=== PATIENT | male | born 1955 | race Caucasian/White ===

== ENCOUNTER 2016-10-04 15:14 | Inpatient (IN) | payer OTHER ==
[~2016-10-04] VITALS: Ht 167.6 cm; Wt 73.6 kg
[~2016-10-04 15:14] MED LIST: DILT30 PO; FURO20 PO; LACT20SO4 PO; LORA0.5T PO; LORTA5 PO; PANT40IN3 PO; RIFA550 PO; SPIR100 PO; THIA100T PO; URSO300 PO
[2016-10-04] MEDS ORDERED: SODIUM CHLORIDE 0.9% FLUSH 5 ML FLUSH IVF PRN (16:15)
[2016-10-04 16:26] VITALS: BP 159/85; PULSE 115; RESP 16; TEMP 98.3; O2SAT 99
--- NOTE | 2016-10-04 16:38 | RADRPT ---
EXAM DATE/TIME: 10/04/2016 16:29 [facility] COMPARISON: CHEST SINGLE AP, May 09, 2016, 5:43. INDICATIONS : Evaluate for pneumonia, pneumothorax, or communicable disease. Pre op hip surgery. MEDICAL HISTORY : None. SURGICAL HISTORY : None. ENCOUNTER: Initial ACUITY: 1 day PAIN SCORE: 0/10 LOCATION: Bilateral chest FINDINGS: A single view of the chest demonstrates the lungs to be symmetrically aerated without evidence of mas s, infiltrate or effusion. The cardiomediastinal contours are unremarkable. Degenerative changes ar e present about the right shoulder.CONCLUSION: No acute disease. Basilio Matute MD FACR on October 04, 2016 at 16:36 Board Certified Radiologist. This report was verified electronically.
--- NOTE | 2016-10-04 16:42 | PD ---
HPI Chief Complaint: Fall Time Seen by Provider: 16:33 Travel History International Travel<30 days: No Contact w/Intl Traveler<30days: No Traveled to known affect area: No History of Present Illness HPI 61-year-old male presents to the emergency department via EMS. He is a hospice patient and slipped and fell last night while in the facility and is complaining of right hip pain. He had a mobile x-ray done that verified a right hip fracture and was then transported to the emergency department. He denies hitting his head or loss of consciousness. Denies neck pain or back pain. Denies paresthesias, loss of sensation to the affected extremity. Reports decreased range of motion and decreased strength. Has been given morphine and Ativan for pain prior to transport via EMS. 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 He denies chest pain, shortness of breath, abdominal pain. Reports vomiting once this morning. Denies fever, chills. Reports taking anticoagulants but does not know the name. No known allergies. No other modifying factors or associated signs and symptoms. PFSH Past Medical History Arthritis: Yes Depression: Yes Cancer: No Cardiovascular Problems: Yes Endocrine: No Genitourinary: No Hypertension: Yes Immune Disorder: No Musculoskeletal: Yes Neurologic: Yes Psychiatric: No Reproductive: No Respiratory: Yes Seizures: Yes (ETOH) Past Surgical History Other Surgery: Yes Social History Alcohol Use: Yes (DAILY 3 BEERS- "75 TO 100 OUNCES" ) Tobacco Use: Yes (3 CIGS A DAY) Substance Use: No Allergies-Medications (Allergen,Severity, Reaction): Coded Allergies: No Known Allergies (Unverified , 10/04/16) Reported Meds & Prescriptions Reported Meds & Active Scripts Active Reported Morphine Liq (Morphine Sulfate) 20 Mg/Ml Liq 5-10 Mg PO Q2HR PRN Ursodiol 300 Mg Cap 300 Mg PO BID Thiamine (Thiamine HCl) 100 Mg Tab 100 Mg PO DAILY Spironolactone 50 Mg Tab 50 Mg PO BID Pantoprazole (Pantoprazole Sodium) 40 Mg Tab 40 Mg PO BID Neomycin (Neomycin Sulfate) 500 Mg Tab 1,000 Mg PO BID Thera-M (Multiple Vitamins W/ Minerals) 1 Tab 1 Tab PO DAILY Milk of Magnesia Liq (Magnesium Hydroxide) 400 Mg/5 Ml Susp 30 Ml PO DAILY PRN Melatonin 3 Mg Tab 6 Mg PO HS Ativan (Lorazepam) 1 Mg Tab 1.5 Mg PO Q4HR PRN Lasix (Furosemide) 20 Mg Tab 20 Mg PO BID Constulose Liq (Lactulose) 10 Gm/15 Ml Soln 30 Gm PO DAILY Lortab (Hydrocodone-Acetaminophen) 5-325 Mg Tab 1 Tab PO Q4H PRN Fleet Enema Rectal (Sodium Phosphates Rectal) 7-19 Gm/118 Ml Enem 118 Ml RECTAL DAILY PRN Cardizem (Diltiazem HCl) 30 Mg Tab 30 Mg PO TID Chlordiazepoxide (Chlordiazepoxide HCl) 25 Mg Cap 25 Mg PO Q4HR PRN Acamprosate DR 333 Mg Tab 333 Mg PO BID Dulcolax Supp (Bisacodyl) 10 Mg Supp 10 Mg RECTAL DAILY PRN Review of Systems Except as stated in HPI: all other systems reviewed are Neg Physical Exam Narrative GENERAL: Well-nourished, well-developed male patient, in no acute distress SKIN: Warm and dry. HEAD: Atraumatic. Normocephalic. EYES: Pupils equal and round. No scleral icterus. No injection or drainage. ENT: Mucosa pink and moist. Airway patent. NECK: Trachea midline. CARDIOVASCULAR: Regular rate and rhythm. No murmur appreciated. RESPIRATORY: No accessory muscle use. Lungs sounds clear and equal bilaterally. GASTROINTESTINAL: Abdomen firm, non-tender, nondistended. Positive bowel sounds. No palpable masses. No guarding. MUSCULOSKELETAL: Right hip with tenderness on palpation; without erythema, ecchymosis; unable to assess range of motion; leg is externally rotated and shortened; with obvious deformity noted. Right lower extremity is supple and non-tense with 2+ pedal pulses and sensory intact and without erythema or edema. NEUROLOGICAL: Awake and alert. Oriented 3. No obvious cranial nerve deficits. Motor grossly within normal limits. Normal speech. PSYCHIATRIC: Appropriate mood and affect; insight and judgment normal. Data Data Last Documented VS Vital Signs Date Time Temp Pulse Resp B/P Pulse Ox O2 Delivery O2 Flow Rate FiO2 10/04/16 17:41 95 Room Air 10/04/16 17:34 121 24 140/88 10/04/16 16:26 98.3 Orders Complete Blood Count With Diff (10/04/16 16:04) Comprehensive Metabolic Panel (10/04/16 16:04) Prothrombin Time / Inr (Pt) (10/04/16 16:04) Act Partial Throm Time (Ptt) (10/04/16 16:04) Iv Access Insert/Monitor (10/04/16 16:04) Ecg Monitoring (10/04/16 16:04) Oximetry (10/04/16 16:04) NPO (10/04/16 16:04) Sodium Chloride 0.9% Flush (Ns Flush) (10/04/16 16:15) Electrocardiogram (10/04/16 16:04) Ct Brain W/O Iv Contrast(Rout) (10/04/16 ) Hip, Uni(Ap&Lat) W Ap Pelvis (10/04/16 16:04) Chest, Single Ap (10/04/16 16:10) Ondansetron Inj (Zofran Inj) (10/04/16 18:00) Morphine Inj (Morphine Inj) (10/04/16 18:45) Type And Screen (10/04/16 20:06) Sodium Chlor 0.9% 1000 Ml Inj (Ns 1000 M (10/04/16 20:15) Consult Orthopedic (10/04/16 ) Admit To Inpatient (10/04/16 ) Vital Signs (Adult) Q4H (10/04/16 20:54) Activity Bed Rest (10/04/16 20:54) Diet Npo (10/05/16 Breakfast) Sodium Chloride 0.9% Flush (Ns Flush) (10/04/16 21:00) Sodium Chloride 0.9% Flush (Ns Flush) (10/04/16 21:00) Ondansetron Inj (Zofran Inj) (10/04/16 21:00) Basic Metabolic Panel (Bmp) (10/05/16 06:00) Complete Blood Count With Diff (10/05/16 06:00) Prothrombin Time / Inr (Pt) (10/05/16 06:00) Case Management Consult (10/04/16 20:54) Scd Bilateral/Knee High GABINO.BID (10/04/16 20:54) Naloxone Inj (Narcan Inj) (10/04/16 21:00) Inpatient Certification (10/04/16 ) Tax Assistant / Telemetry GABINO.Q8H (10/04/16 20:56) Labs Laboratory Tests Test 10/04/16 16:20 White Blood Count 7.7 TH/MM3 Red Blood Count 3.19 MIL/MM3 Hemoglobin 10.0 GM/DL Hematocrit 29.5 % Mean Corpuscular Volume 92.6 FL Mean Corpuscular Hemoglobin 31.4 PG Mean Corpuscular Hemoglobin 33.9 % Concent Red Cell Distribution Width 15.3 % Platelet Count 47 TH/MM3 Mean Platelet Volume 8.3 FL Neutrophils (%) (Auto) 75.0 % Lymphocytes (%) (Auto) 9.7 % Monocytes (%) (Auto) 14.9 % Eosinophils (%) (Auto) 0.3 % Basophils (%) (Auto) 0.1 % Neutrophils # (Auto) 5.8 TH/MM3 Lymphocytes # (Auto) 0.8 TH/MM3 Monocytes # (Auto) 1.1 TH/MM3 Eosinophils # (Auto) 0.0 TH/MM3 Basophils # (Auto) 0.0 TH/MM3 CBC Comment AUTO DIFF Differential Comment AUTO DIFF CONFIRMED Sodium Level 123 MEQ/L Potassium Level 4.6 MEQ/L Chloride Level 89 MEQ/L Carbon Dioxide Level 21.3 MEQ/L Anion Gap 13 MEQ/L Blood Urea Nitrogen 31 MG/DL Creatinine 1.36 MG/DL Estimat Glomerular Filtration 53 ML/MIN Rate Random Glucose 90 MG/DL Calcium Level 8.3 MG/DL Total Bilirubin 1.7 MG/DL Aspartate Amino Transf 162 U/L (AST/SGOT) Alanine Aminotransferase 54 U/L (ALT/SGPT) Alkaline Phosphatase 132 U/L Total Protein 7.0 GM/DL Albumin 3.0 GM/DL MDM Medical Decision Making Medical Screen Exam Complete: Yes Emergency Medical Condition: Yes Medical Record Reviewed: Yes Differential Diagnosis Hip fracture, hip dislocation, fall Narrative Course 61-year-old male presents via EMS after a fall yesterday and verification of right hip fracture via a [employer]. The right lower extremity is shortened and with external rotation. There is obvious injury to the right hip. Right lower extremity supple and non-tense with 2+ pedal pulses and sensory intact. The patient is currently a hospice patient secondary to liver failure secondary to EtOH abuse. The patient was administered morphine and Ativan prior to arrival to the ER. IV site obtained. Labs ordered. Chest x- ray ordered for preop. EKG ordered for preop. Right hip with pelvis x-ray ordered. 1726: Chest x-ray with no acute findings. CT head with no acute findings. Right hip with pelvic x-ray concludes Intertrochanteric fracture right hip. Call out to ortho placed. 2009: Sodium 123. 1 L normal saline ordered. Type and screen ordered for preop. Call out to [facility] for patient admission. 2028: Dr Richards, orthopedic, aware of patient. 2099: I spoke with LAUREN Magana. Report given and patient admitted. Physician Communication Physician Communication Dr. Richards, Orthopedic; LAUREN Magana Diagnosis Primary Impression: Fall Qualified Code: W19.XXXA - Fall, initial encounter Additional Impressions: Hip fracture, right Qualified Code: S72.001A - Hip fracture, right, closed, initial encounter Hyponatremia Admitting Information Admitting Physician Requests: Admit Radha Rhodes Oct 04, 2016 16:42
--- NOTE | 2016-10-04 16:53 | RADRPT ---
EXAM DATE/TIME: 10/04/2016 16:29 [facility] COMPARISON: HIP RIGHT (AP&LAT 2/3VWS) W AP PELVIS, February 24, 2016, 9:49. INDICATIONS: Right hip pain after fall. MEDICAL HISTORY: None. SURGICAL HISTORY: None. ENCOUNTER: Initial ACUITY: 1 day PAIN SCORE: 10/10 LOCATION: Right hip. FINDINGS: There is an intertrochanteric fracture of the right. Lesser trochanter is a free fragment. The left yury-pelvis is intact. CONCLUSION: Intertrochanteric fracture right hip. Basilio Matute MD FACR on October 04, 2016 at 16:44 Board Certified Radiologist. This report was verified electronically.
--- NOTE | 2016-10-04 17:01 | RADRPT ---
EXAM DATE/TIME: 10/04/2016 16:43 [facility] COMPARISON: No previous studies available for comparison. INDICATIONS : Fell last night RADIATION DOSE: 56.36 CTDIvol (mGy) MEDICAL HISTORY : Cerebrovascular disease. Seizures. Hypertension. SURGICAL HISTORY : None. ENCOUNTER: Initial ACUITY: 1 day PAIN SCALE: 3/10 LOCATION: Bilateral cranial TECHNIQUE: Multiple contiguous axial images were obtained of the head. Using automated exposure control and adj ustment of the mA and/or kV according to patient size, radiation dose was kept as low as reasonably a chievable to obtain optimal diagnostic quality images. FINDINGS: CEREBRUM: The ventricles are normal for age. No evidence of midline shift, mass lesion, hemorrhage or acute in farction. No extra-axial fluid collections are seen. POSTERIOR FOSSA: The cerebellum and brainstem are intact. The 4th ventricle is midline. The cerebellopontine angle i s unremarkable. EXTRACRANIAL: The visualized portion of the orbits is intact. SKULL: The calvaria is intact. No evidence of skull fracture. CONCLUSION: 1. No acute findings. Mild cortical volume loss. Jack Barnhart MD on October 04, 2016 at 16:56 Board Certified Radiologist. This report was verified electronically.
[2016-10-04 17:33] LABS: AUTOMATED NEUTROPHIL # 5.8 TH/MM3 (1.8-7.7); BASOPHIL % 0.1 % (0.0-2.0); EOSINOPHIL % 0.3 % (0.0-4.0); HEMATOCRIT 29.5 % (39.0-51.0); LYMPH % 9.7 % (9.0-44.0); LYMPHOCYTE # 0.8 TH/MM3 (1.0-4.8); MEAN CELL VOLUME 92.6 FL (80.0-100.0); MEAN CORPUSCULAR HEMOGLOBIN 31.4 PG (27.0-34.0); MEAN CORPUSCULAR HGB CONC 33.9 % (32.0-36.0); MONO % 14.9 % (0.0-8.0); PLATELET COUNT 47 TH/MM3 (150-450); RED BLOOD COUNT 3.19 MIL/MM3 (4.50-5.90); RED CELL DISTRIBUTION WIDTH 15.3 % (11.6-17.2); WHITE BLOOD COUNT 7.7 TH/MM3 (4.0-11.0)
[2016-10-04 17:34] VITALS: BP 140/88; PULSE 121; RESP 24
[2016-10-04 17:41] VITALS: O2SAT 95
[2016-10-04 17:42] LABS: HEMO FLAGS AUTO DIFF
[2016-10-04] MEDS ORDERED: ONDANSETRON HCL 4 MG/2 ML VIAL IV PUSH ONE (18:00)
[2016-10-04 18:17] LABS: ALKALINE PHOSPHATASE 132 U/L (45-117); ALT (GPT) 54 U/L (12-78); ANION GAP 13 MEQ/L (5-15); AST (GOT) 162 U/L (15-37); BICARBONATE 21.3 MEQ/L (21.0-32.0); BLOOD UREA NITROGEN 31 MG/DL (7-18); CHLORIDE 89 MEQ/L (98-107); GLOMERULAR FILTRATION RATE 53 ML/MIN (>89); TOTAL BILIRUBIN ADULT 1.7 MG/DL (0.2-1.0)
[2016-10-04 18:19] LABS: POTASSIUM 4.6 MEQ/L (3.5-5.1)
[2016-10-04 18:20] LABS: SODIUM (NA) 123 MEQ/L (136-145)
[2016-10-04 18:26] LABS: SCAN/DIFF AUTO DIFF CONFIRMED
[2016-10-04] MEDS ORDERED: DULC10SU3 RECTAL (18:26)
[2016-10-04] MEDS ORDERED: ACAM1TAB5 PO (18:26)
[2016-10-04] MEDS ORDERED: CHLO25CA2 PO (18:26)
[2016-10-04] MEDS ORDERED: DILT31TA PO (18:31)
[2016-10-04] MEDS ORDERED: HYDR-3533 PO (18:31)
[2016-10-04] MEDS ORDERED: FLEEENE3 RECTAL (18:31)
[2016-10-04] MEDS ORDERED: LACT10SO48 PO (18:33)
[2016-10-04] MEDS ORDERED: FURO1TAB62 PO (18:34)
[2016-10-04] MEDS ORDERED: LORA-474 PO (18:39)
[2016-10-04] MEDS ORDERED: MORPHINE SULFATE 4 MG/ML INJ IV PUSH ONE (18:45)
[2016-10-04] MEDS ORDERED: NEOM500 PO (18:47)
[2016-10-04] MEDS ORDERED: PANT40TA3 PO (18:47)
[2016-10-04] MEDS ORDERED: URSO300C2 PO (18:47)
[2016-10-04] MEDS ORDERED: MELA0.02 PO (18:47)
[2016-10-04] MEDS ORDERED: THERTAB17 PO (18:47)
[2016-10-04] MEDS ORDERED: THIA100T PO (18:47)
[2016-10-04] MEDS ORDERED: SPIR50TA PO (18:47)
[2016-10-04] MEDS ORDERED: MILKSUS PO (18:47)
[2016-10-04] MEDS ORDERED: MORP20SO2 PO (18:50)
[2016-10-04] MEDS ORDERED: SODIUM CHLOR 0.9% 1000 ML INJ 1,000 ML IV ONE (20:15)
[2016-10-04 21:00] VITALS: BP 126/85; PULSE 129; RESP 20; O2SAT 96
[2016-10-04] MEDS ORDERED: NALOXONE HCL 0.4 MG/ML AMP IV PRN (21:00)
[2016-10-04] MEDS ORDERED: ONDANSETRON HCL 4 MG/2 ML VIAL IVP PRN (21:00)
[2016-10-04] MEDS ORDERED: SODIUM CHLORIDE 0.9% FLUSH 5 ML FLUSH FLUSH PRN (21:00)
[2016-10-04] MEDS: SODIUM CHLORIDE 0.9% FLUSH 5 ML FLUSH FLUSH SCH (21:24)
--- NOTE | 2016-10-04 22:14 | HHI.HP ---
[facility] Admission Diagnosis R hip fracture; hyponatremia Diagnoses: Chief Complaint: right hip pain from fall Travel History International Travel<30 Days: No Contact w/Intl Traveler <30 Da: No Traveled to Known Affected Are: No History of Present Illness History taken from Patient and ED physician. 61 y/o male on hospice with a history of HTN, copd, ETOH abuse and cirrhosis was sent from the Hospice care center after falling on the floor. Patient states he lives in an [facility] in [place], and when he walking to the bathroom he slipped. He states he did not slip on any water, or hit his head. He states he was unsteady on his feet. His last drink was 4 days ago, and he drinks a pint a day. At the [facility] an x ray was done and showed a right hip fracture. Hospice was then he called and he was transferred to the care center. He is complaining of right hip pain. Denies any chest pain, sob, fever or chills. Upon arrival he was found to have a Na of 123 and did vomit twice per the RN. He states this happens when he withdrawals. He denies any chest pain, sob, fever or chills. Review of Systems Constitutional: DENIES: Fever, Chills Respiratory: DENIES: Cough, Sputum production, Shortness of breath Cardiovascular: DENIES: Chest pain, Lower Extremity Edema Gastrointestinal: COMPLAINS OF: Nausea, Vomiting, DENIES: Abdominal pain, Constipation, Diarrhea Genitourinary: DENIES: Hematuria, Dysuria Musculoskeletal: COMPLAINS OF: Joint pain, DENIES: Back pain, Neck pain Integumentary: DENIES: Rash Hematologic/lymphatic: DENIES: Lymphadenopathy Immunologic/allergic: DENIES: Urticaria Neurologic: COMPLAINS OF: Localized weakness, DENIES: Headache Past Family Social History Past Medical History HTN Cirrhosis COPD ETOH abuse Multiple GI Bleeds Chronic hyponatremia Past Surgical History left ankle repair vasectomy Reported Medications Reported Meds & Active Scripts Active Reported Morphine Liq (Morphine Sulfate) 20 Mg/Ml Liq 5-10 Mg PO Q2HR PRN Ursodiol 300 Mg Cap 300 Mg PO BID Thiamine (Thiamine HCl) 100 Mg Tab 100 Mg PO DAILY Spironolactone 50 Mg Tab 50 Mg PO BID Pantoprazole (Pantoprazole Sodium) 40 Mg Tab 40 Mg PO BID Neomycin (Neomycin Sulfate) 500 Mg Tab 1,000 Mg PO BID Thera-M (Multiple Vitamins W/ Minerals) 1 Tab 1 Tab PO DAILY Milk of Magnesia Liq (Magnesium Hydroxide) 400 Mg/5 Ml Susp 30 Ml PO DAILY PRN Melatonin 3 Mg Tab 6 Mg PO HS Ativan (Lorazepam) 1 Mg Tab 1.5 Mg PO Q4HR PRN Lasix (Furosemide) 20 Mg Tab 20 Mg PO BID Constulose Liq (Lactulose) 10 Gm/15 Ml Soln 30 Gm PO DAILY Lortab (Hydrocodone-Acetaminophen) 5-325 Mg Tab 1 Tab PO Q4H PRN Fleet Enema Rectal (Sodium Phosphates Rectal) 7-19 Gm/118 Ml Enem 118 Ml RECTAL DAILY PRN Cardizem (Diltiazem HCl) 30 Mg Tab 30 Mg PO TID Chlordiazepoxide (Chlordiazepoxide HCl) 25 Mg Cap 25 Mg PO Q4HR PRN Acamprosate DR 333 Mg Tab 333 Mg PO BID Dulcolax Supp (Bisacodyl) 10 Mg Supp 10 Mg RECTAL DAILY PRN Allergies: Coded Allergies: No Known Allergies (Unverified , 10/04/16) Active Ordered Medications Current Medications Medications (Trade) Dose Ordered Sig/Fernanda Route Start Time Stop Time Status Last Admin (NS Flush) 2 ml UNSCH PRN FLUSH 10/04/16 21:00 (NS Flush) 2 ml BID FLUSH 10/04/16 21:00 10/04/16 21:24 (Zofran Inj) 4 mg Q6H PRN IVP 10/04/16 21:00 (Narcan Inj) 0.4 mg UNSCH PRN IV 10/04/16 21:00 Family History Family history significant of heart disease, [place], and ETOH abuse. Social History Tobacco use: seldom Alcohol use: a pint of vodka a day Illcit drug use: denies Physical Exam Vital Signs Vital Signs Date Time Temp Pulse Resp B/P Pulse Ox O2 Delivery O2 Flow Rate FiO2 10/04/16 21:08 Room Air 10/04/16 17:41 95 Room Air 10/04/16 17:34 121 24 140/88 Room Air 10/04/16 17:34 Room Air 10/04/16 16:26 98.3 115 16 159/85 99 Physical Exam GENERAL: This is a well-nourished, well-developed patient, in no apparent distress. SKIN: No rashes, ecchymoses or lesions. Cool and dry. HEAD: Atraumatic. Normocephalic. No temporal or scalp tenderness. EYES: No scleral icterus. No injection or drainage. ENT: Nose without bleeding, purulent drainage or septal hematoma. Airway patent. NECK: Trachea midline. No JVD or lymphadenopathy. Supple, nontender, no meningeal signs. CARDIOVASCULAR: Regular rate and rhythm without murmurs, gallops, or rubs. RESPIRATORY: Clear to auscultation. Breath sounds equal bilaterally. No wheezes , rales, or rhonchi. GASTROINTESTINAL: Abdomen soft, non-tender, nondistended. No guarding. MUSCULOSKELETAL: Extremities without clubbing, cyanosis, or edema. No calf tenderness NEUROLOGICAL: Awake and alert. Motor and sensory grossly within normal limits. Normal speech. Laboratory Laboratory Tests Test 10/04/16 16:20 White Blood Count 7.7 Red Blood Count 3.19 Hemoglobin 10.0 Hematocrit 29.5 Mean Corpuscular Volume 92.6 Mean Corpuscular Hemoglobin 31.4 Mean Corpuscular Hemoglobin 33.9 Concent Red Cell Distribution Width 15.3 Platelet Count 47 Mean Platelet Volume 8.3 Neutrophils (%) (Auto) 75.0 Lymphocytes (%) (Auto) 9.7 Monocytes (%) (Auto) 14.9 Eosinophils (%) (Auto) 0.3 Basophils (%) (Auto) 0.1 Neutrophils # (Auto) 5.8 Lymphocytes # (Auto) 0.8 Monocytes # (Auto) 1.1 Eosinophils # (Auto) 0.0 Basophils # (Auto) 0.0 CBC Comment AUTO DIFF Differential Comment AUTO DIFF CONFIRMED Sodium Level 123 Potassium Level 4.6 Chloride Level 89 Carbon Dioxide Level 21.3 Anion Gap 13 Blood Urea Nitrogen 31 Creatinine 1.36 Estimat Glomerular Filtration 53 Rate Random Glucose 90 Calcium Level 8.3 Total Bilirubin 1.7 Aspartate Amino Transf 162 (AST/SGOT) Alanine Aminotransferase 54 (ALT/SGPT) Alkaline Phosphatase 132 Total Protein 7.0 Albumin 3.0 Result Diagram: 10/04/16 1620 10/04/16 1620 Imaging Last Impressions Chest X-Ray 10/04/16 1610 Signed Impressions: Service Date/Time: Tuesday, October 04, 2016 16:29 - CONCLUSION: No acute disease. Basilio Matute MD FACR Head CT 10/04/16 0000 Signed Impressions: Service Date/Time: Tuesday, October 04, 2016 16:43 - CONCLUSION: 1. No acute findings. Mild cortical volume loss. Jack Barnhart MD Assessment and Plan Problem List: (1) Hip fracture, right ICD Code: S72.001A Status: Acute (2) Hyponatremia ICD Code: E87.1 Status: Acute (3) ALEX (acute kidney injury) ICD Code: N17.9 Status: Acute Assessment and Plan 61 y/o male with a history of HTN, COPD, and Cirrhosis Hip fracture, right Images: outpatient xray shows right hip fracture -Consult orthopedic -NPO -Pain management with IV morphine Hyponatremia Labs: NA 123 -Supportive IVF NS@84ml/hr -Serial BMP q6 ALEX, likely dehydration Labs: creatine 1.36, baseline .9 -Cont IVF -trend BMP ETOH abuse -CIWA protocol -Librium TID -seizure precautions -Thiamine daily Written by Becky LYLES, acting as scribe for Dr. Major on 10/04/16 at 2215. All or portions of this note were transcribed by scribe [Becky Roman]. I, Dr. Cata Major personally performed the history, physical exam, and medical decision making; and confirmed the accuracy of the information in the transcribed note. Authenticated by Dr. Cata Major on 10/04/16 at 2215 Code Status DNR Discussed Condition With Patient and RN Physician Certification 2 Midnight Certification Type: Admission for Inpatient Services Order for Inpatient Services The services are ordered in accordance with Medicare regulations or non- Medicare payer requirements, as applicable. In the case of services not specified as inpatient-only, they are appropriately provided as inpatient services in accordance with the 2-midnight benchmark. Estimated LOS (days): 3 days is the estimated time the patient will need to remain in the hospital, assuming treatment plan goals are met and no additional complications. Post-Hospital Plan: Not yet determined Problem Qualifiers (1) Hip fracture, right: Qualified Code: S72.001A - Hip fracture, right, closed, initial encounter Becky Roman Oct 04, 2016 22:14 Cata Major MD Nov 08, 2016 08:05
[2016-10-04] MEDS: SODIUM CHLOR 0.9% 1000 ML INJ 1,000 ML IV SCH (22:30)
[2016-10-04] MEDS ORDERED: LORazepam 2 MG/ML VIAL IV PUSH PRN (22:45)
[2016-10-04] MEDS ORDERED: MORPHINE SULFATE 4 MG/ML INJ IV PUSH PRN (22:45)
[2016-10-04] MEDS ORDERED: THIAMINE INJ 100 MG in SODIUM CHLORIDE 0.9% INJ 100 ML IV ONE (22:45)
[2016-10-04 23:57] LABS: APTT (PATIENT) 28.2 SEC (24.3-30.1); INTERNATIONAL NORMALIZED RATIO 1.2 RATIO; PROTHROMBIN TIME - PATIENT 13.6 SEC (9.8-11.6)
[2016-10-05] VITALS (7 sets, daily range): BP systolic 112–141; BP diastolic 67–86; PULSE 110–122; RESP 16–26; TEMP 96.7–98.5; O2SAT 97–99
[2016-10-05 00:09] LABS: BICARBONATE 23.4 MEQ/L (21.0-32.0); POTASSIUM 4.5 MEQ/L (3.5-5.1)
[2016-10-05] MEDS: SODIUM CHLOR 0.9% 1000 ML INJ 1,000 ML IV SCH ×3 (03:50→10:04)
[2016-10-05 05:50] LABS: AUTOMATED NEUTROPHIL # 7.6 TH/MM3 (1.8-7.7); BASOPHIL % 0.1 % (0.0-2.0); EOSINOPHIL % 0.5 % (0.0-4.0); HEMATOCRIT 26.6 % (39.0-51.0); LYMPH % 10.6 % (9.0-44.0); LYMPHOCYTE # 1.1 TH/MM3 (1.0-4.8); MEAN CELL VOLUME 92.1 FL (80.0-100.0); MEAN CORPUSCULAR HEMOGLOBIN 32.6 PG (27.0-34.0); MEAN CORPUSCULAR HGB CONC 35.4 % (32.0-36.0); MONO % 14.9 % (0.0-8.0); NEUT % 73.9 % (16.0-70.0); PLATELET COUNT 61 TH/MM3 (150-450); RED BLOOD COUNT 2.89 MIL/MM3 (4.50-5.90); RED CELL DISTRIBUTION WIDTH 15.1 % (11.6-17.2); WHITE BLOOD COUNT 10.2 TH/MM3 (4.0-11.0)
[2016-10-05 05:52] LABS: INTERNATIONAL NORMALIZED RATIO 1.2 RATIO; PROTHROMBIN TIME - PATIENT 13.7 SEC (9.8-11.6)
[2016-10-05 06:04] LABS: BICARBONATE 23.3 MEQ/L (21.0-32.0); POTASSIUM 4.4 MEQ/L (3.5-5.1)
[2016-10-05 06:07] LABS: HEMO FLAGS AUTO DIFF
[2016-10-05 06:52] LABS: PLATELET ESTIMATE SMEAR LOW (NORMAL); PLATELET MORPHOLOGY NORMAL (NORMAL); SCAN/DIFF AUTO DIFF CONFIRMED
[2016-10-05] MEDS ORDERED: FLUMAZENIL 0.5 MG/5 ML VIAL IV PUSH PRN (09:30)
[2016-10-05] MEDS ORDERED: LORazepam 2 MG TAB PO PRN (09:30)
[2016-10-05] MEDS ORDERED: LORazepam 2 MG/ML VIAL IV PUSH PRN ×4 (09:30)
[2016-10-05] MEDS ORDERED: ceFAZolin 2 GM PREMIX 50 ML IV SCH (09:30)
[2016-10-05] MEDS ORDERED: SODIUM CHLORIDE 0.9% FLUSH 5 ML FLUSH IV FLUSH PRN (09:30)
[2016-10-05] MEDS ORDERED: VANCOMYCIN INJ 1,000 MG in SODIUM CHLOR 0.9% 250 ML INJ 250 ML IV SCH (09:30)
[2016-10-05] MEDS ORDERED: LORazepam 1 MG TAB PO PRN (09:30)
[2016-10-05] MEDS: SODIUM CHLORIDE 0.9% FLUSH 5 ML FLUSH FLUSH SCH (09:41)
[2016-10-05] MEDS: chlordiazePOXIDE 25 MG CAP PO SCH ×3 (09:41→18:00)
[2016-10-05] MEDS: THIAMINE HCL 100 MG TAB PO SCH (09:41)
[2016-10-05] MEDS: FOLIC ACID 1 MG TAB PO SCH (10:05)
--- NOTE | 2016-10-05 10:39 | RADRPT ---
EXAM DATE/TIME: 10/05/2016 09:47 [facility] COMPARISON: No previous studies available for comparison. INDICATIONS : Increased BUN/Creatinine. MEDICAL HISTORY : Hypertension. Chronic obstructive pulmonary disease. Seizures. GI bleed. Alcohol abuse. Cirrhosis. SURGICAL HISTORY : Orthopedic surgery, left ankle. ENCOUNTER: Initial ACUITY: 1 day PAIN SCORE: 2/10 LOCATION: Bilateral flank MEASUREMENTS: RIGHT KIDNEY: 9.4 x 4.8 x 4.4 cm LEFT KIDNEY: 10.6 x 5.1 x 5.0 cm FINDINGS: RIGHT KIDNEY: Renal cortex is normal in thickness and echotexture. No hydronephrosis, stone, or mass. LEFT KIDNEY: Renal cortex is normal in thickness and echotexture. No hydronephrosis, stone, or mass. BLADDER: Within normal limits given the degree of distension. CONCLUSION: Normal renal sonogram. Joe Castro MD on October 05, 2016 at 10:37 Board Certified Radiologist. This report was verified electronically.
--- NOTE | 2016-10-05 10:45 | HHI.PR ---
Subjective Remarks Follow up for fall with hip fracture, hyponatremia, alcohol withdrawal. The patient reports he felt dizzy and fell yesterday in the bathroom, he could not ambulate afterwards, complains of pain at the right hip. He denies any chest pain, shortness of breath, headache, dizzy, or abdominal complaints. He admits to drinking alcohol 1 pint a day of alcohol. He believes he's detoxing right now. He admits to history of seizures related to alcohol withdrawal. He has no other medical complaints at this time. He states he is on hospice for the liver failure/cirrhosis. Objective Vitals Vital Signs Date Time Temp Pulse Resp B/P Pulse Ox O2 Delivery O2 Flow Rate FiO2 10/05/16 09:42 98.5 122 26 115/67 Room Air 95 10/05/16 03:50 120 22 122/86 98 Room Air 10/05/16 00:35 110 18 133/79 98 Room Air 10/04/16 21:08 Room Air 10/04/16 21:00 129 20 126/85 96 Room Air 10/04/16 17:41 95 Room Air 10/04/16 17:34 121 24 140/88 Room Air 10/04/16 17:34 Room Air 10/04/16 16:26 98.3 115 16 159/85 99 Result Diagram: 10/05/16 0433 10/05/16 0432 Imaging Last Impressions Chest X-Ray 10/04/16 1610 Signed Impressions: Service Date/Time: Tuesday, October 04, 2016 16:29 - CONCLUSION: No acute disease. Basilio Matute MD FACR Head CT 10/04/16 0000 Signed Impressions: Service Date/Time: Tuesday, October 04, 2016 16:43 - CONCLUSION: 1. No acute findings. Mild cortical volume loss. Jack Barnhart MD Objective Remarks GENERAL: Well-developed male patient in NAD, drowsy. SKIN: Warm and dry. HEAD: Atraumatic. Normocephalic. EYES: Pupils equal and round. No scleral icterus. No injection or drainage. ENT: No nasal bleeding or discharge. Mucous membranes pink and moist. NECK: Trachea midline. CARDIOVASCULAR: Tachycardic, regular rhythm. No murmur. RESPIRATORY: No accessory muscle use. Clear to auscultation. Breath sounds equal bilaterally. GASTROINTESTINAL: Abdomen soft, non-tender, nondistended. Hepatic and splenic margins not palpable. MUSCULOSKELETAL: Extremities without clubbing, cyanosis, or edema. RLE shortened with external rotation. 2+ bilateral pedal pulses. NEUROLOGICAL: Awake and alert. No obvious cranial nerve deficits. Motor grossly within normal limits. Normal speech. PSYCHIATRIC: Appropriate mood and affect; insight and judgment normal. Medications and IVs Current Medications Medications (Trade) Dose Ordered Sig/Fernanda Route Start Time Stop Time Status Last Admin (NS Flush) 2 ml UNSCH PRN FLUSH 10/04/16 21:00 (NS Flush) 2 ml BID FLUSH 10/04/16 21:00 10/05/16 09:41 (Zofran Inj) 4 mg Q6H PRN IVP 10/04/16 21:00 Naloxone HCl 0.4 mg 0.4 mg UNSCH PRN IV 10/04/16 21:00 (NS 1000 ml Inj) 1,000 ml @ 125 mls/hr Q8H IV 10/04/16 22:30 10/05/16 10:04 (Morphine Inj) 2 mg Q3H PRN IV PUSH 10/04/16 22:45 10/05/16 09:50 (Vitamin B1) 100 mg DAILY PO 10/05/16 09:00 10/05/16 09:41 (Librium) 25 mg TID PO 10/05/16 09:00 10/05/16 09:41 (Ativan Inj) 1 mg Q2H PRN IV PUSH 10/04/16 22:45 10/05/16 03:50 (Folate) 1 mg DAILY PO 10/05/16 09:30 10/05/16 10:05 (NS Flush) 2 ml UNSCH PRN IV FLUSH 10/05/16 09:30 (NS Flush) 2 ml BID IV FLUSH 10/05/16 21:00 (Theragran M Tab) 1 tab DAILY PO 10/06/16 09:00 10/11/16 08:59 (Romazicon Inj) 0.2 mg Q1M PRN IV PUSH 10/05/16 09:30 (Ativan) 1 mg Q4H PRN PO 10/05/16 09:30 (Ativan Inj) 1 mg Q4H PRN IV PUSH 10/05/16 09:30 (Ativan) 2 mg Q2H PRN PO 10/05/16 09:30 (Ativan Inj) 2 mg Q2H PRN IV PUSH 10/05/16 09:30 (Ativan Inj) 2 mg Q1H PRN IV PUSH 10/05/16 09:30 (Ativan Inj) 2 mg Q15M PRN IV PUSH 10/05/16 09:30 A/P Problem List: (1) Hip fracture, right ICD Code: S72.001A Status: Acute (2) Hyponatremia ICD Code: E87.1 Status: Acute (3) ALEX (acute kidney injury) ICD Code: N17.9 Status: Acute Assessment and Plan 61 y/o male on hospice with a history of HTN, COPD, ETOH abuse and cirrhosis was sent from his [facility] after falling on the floor. Right Hip fracture: Hip xray images reviewed, showed right intertrochanteric fracture. Consulted Ortho, keep NPO, plan for ORIF today. Pain control with IV morphine prn. Acute on Chronic Hyponatremia: Na 123, previously 125 in . Likely hypervolemia hyponatremia related to alcohol abuse. Continue IVF with NS @ 125cc /hr. Monitor serial BMP q6h. ALEX: likely secondary to dehydration. Labs reviewed, showed Cr 1.36, previously 0.96 in . On IVF. Monitor BMP, creatinine worsening. Monitor closely. Avoid nephrotoxins. ETOH abuse with withdrawal: Continue CIWA protocol, Librium TID. Seizure precautions. MV/folate/thiamine daily. Cirrhosis: on hospice. Avoid further hepatotoxins. COPD: chronic, does not appear to be in exacerbation. Duonebs prn. DVT Prophylaxis: teds/SCDs to nonoperative leg. Avoid chemical prophylaxis for now with upcoming surgery. Written by Yani Rodríguez, acting as scribe for Dr. Figueroa on 10/05/16 at 10: 44. Problem Qualifiers (1) Hip fracture, right: Qualified Code: S72.001A - Hip fracture, right, closed, initial encounter Yani Rodríguez PA-C Oct 05, 2016 10:45 Doug Gama MD Oct 07, 2016 12:21
[2016-10-05 11:31] LABS: BICARBONATE 24.3 MEQ/L (21.0-32.0); POTASSIUM 4.5 MEQ/L (3.5-5.1)
[2016-10-05] MEDS ORDERED: ONDANSETRON HCL 4 MG/2 ML VIAL IV PUSH ONE (12:00)
[2016-10-05] MEDS ORDERED: LACTATED RINGER'S 1000 ML INJ 1,000 ML IV ONE (12:00)
[2016-10-05] MEDS ORDERED: PROPOFOL 200 MG/20 ML AMP IV ONE (12:00)
[2016-10-05] MEDS ORDERED: PHENYLEPH/NS 1000 MCG/10 ML SYR IV ONE (12:00)
[2016-10-05] MEDS ORDERED: GENTAMICIN SULFATE 80 MG/2 ML VIAL ONE (13:00)
[2016-10-05] MEDS ORDERED: VANCOMYCIN HCL 1000 MG VIAL ONE (13:06)
[2016-10-05] MEDS ORDERED: ceFAZolin INJ 1,000 MG VIAL ONE (13:08)
[2016-10-05] MEDS ORDERED: FAMOTIDINE 20 MG/2 ML VIAL ONE (13:16)
--- NOTE | 2016-10-05 13:44 | PD.CONS ---
cc: Ishan Richards Jr., MD HPI Service Orthopedic Surgeons Consult Requested By Primary Care Physician [facility] Admission Diagnosis R hip fracture; hyponatremia Diagnoses: (1) Hip fracture, right (2) Hyponatremia (3) ALEX (acute kidney injury) Chief Complaint: Right hip fracture History of Present Illness 61yo male, resident of [facility] [place], s/p fall in the bathroom, c/o right hip pain and inability to bear weight. pain is localized in right hip, exacerbated by WB and ROM, relieved at rest, no associated with any head injury, paresthesia or numbness to RLE, pain is stabbing and nonradiating. Of note, the patient has a h/o HTN, COPD, ETOH abuse and cirrhosis. He drinks a pint a day. xrays taken in ED revealed displaced IT femur fracture. Review of Systems Constitutional: DENIES: Fever, Chills Respiratory: DENIES: Cough, Sputum production, Shortness of breath Cardiovascular: DENIES: Chest pain, Lower Extremity Edema Gastrointestinal: COMPLAINS OF: Nausea, Vomiting, DENIES: Abdominal pain, Constipation, Diarrhea Genitourinary: DENIES: Hematuria, Dysuria Musculoskeletal: COMPLAINS OF: Joint pain, DENIES: Back pain, Neck pain Integumentary: DENIES: Rash Hematologic/lymphatic: DENIES: Lymphadenopathy Immunologic/allergic: DENIES: Urticaria Neurologic: COMPLAINS OF: Localized weakness, DENIES: Headache PFSH Past Family Social History Past Medical History HTN Cirrhosis COPD ETOH abuse Multiple GI Bleeds Chronic hyponatremia Past Surgical History left ankle repair vasectomy Allergies: Coded Allergies: No Known Allergies Family History Family history significant of heart disease, ND, and ETOH abuse. Social History Tobacco use: seldom Alcohol use: a pint of vodka a day Illcit drug use: denies Past Family Social History Past Medical History HTN Cirrhosis COPD ETOH abuse Multiple GI Bleeds Chronic hyponatremia Past Surgical History left ankle repair vasectomy Allergies: Coded Allergies: No Known Allergies (Unverified , 10/04/16) Active Ordered Medications Current Medications Medications (Trade) Dose Ordered Sig/Fernanda Route Start Time Stop Time Status Last Admin (NS Flush) 2 ml UNSCH PRN FLUSH 10/04/16 21:00 (NS Flush) 2 ml BID FLUSH 10/04/16 21:00 10/05/16 09:41 (Zofran Inj) 4 mg Q6H PRN IVP 10/04/16 21:00 Naloxone HCl 0.4 mg 0.4 mg UNSCH PRN IV 10/04/16 21:00 (NS 1000 ml Inj) 1,000 ml @ 125 mls/hr Q8H IV 10/04/16 22:30 10/05/16 10:04 (Morphine Inj) 2 mg Q3H PRN IV PUSH 10/04/16 22:45 10/05/16 09:50 (Vitamin B1) 100 mg DAILY PO 10/05/16 09:00 10/05/16 09:41 (Librium) 25 mg TID PO 10/05/16 09:00 10/05/16 09:41 (Ativan Inj) 1 mg Q2H PRN IV PUSH 10/04/16 22:45 10/05/16 03:50 (Folate) 1 mg DAILY PO 10/05/16 09:30 10/05/16 10:05 (NS Flush) 2 ml UNSCH PRN IV FLUSH 10/05/16 09:30 (NS Flush) 2 ml BID IV FLUSH 10/05/16 21:00 (Theragran M Tab) 1 tab DAILY PO 10/06/16 09:00 10/11/16 08:59 (Romazicon Inj) 0.2 mg Q1M PRN IV PUSH 10/05/16 09:30 (Ativan) 1 mg Q4H PRN PO 10/05/16 09:30 (Ativan Inj) 1 mg Q4H PRN IV PUSH 10/05/16 09:30 (Ativan) 2 mg Q2H PRN PO 10/05/16 09:30 (Ativan Inj) 2 mg Q2H PRN IV PUSH 10/05/16 09:30 (Ativan Inj) 2 mg Q1H PRN IV PUSH 10/05/16 09:30 (Ativan Inj) 2 mg Q15M PRN IV PUSH 10/05/16 09:30 Reported Meds & Active Scripts Active Reported Morphine Liq (Morphine Sulfate) 20 Mg/Ml Liq 5-10 Mg PO Q2HR PRN Ursodiol 300 Mg Cap 300 Mg PO BID Thiamine (Thiamine HCl) 100 Mg Tab 100 Mg PO DAILY Spironolactone 50 Mg Tab 50 Mg PO BID Pantoprazole (Pantoprazole Sodium) 40 Mg Tab 40 Mg PO BID Neomycin (Neomycin Sulfate) 500 Mg Tab 1,000 Mg PO BID Thera-M (Multiple Vitamins W/ Minerals) 1 Tab 1 Tab PO DAILY Milk of Magnesia Liq (Magnesium Hydroxide) 400 Mg/5 Ml Susp 30 Ml PO DAILY PRN Melatonin 3 Mg Tab 6 Mg PO HS Ativan (Lorazepam) 1 Mg Tab 1.5 Mg PO Q4HR PRN Lasix (Furosemide) 20 Mg Tab 20 Mg PO BID Constulose Liq (Lactulose) 10 Gm/15 Ml Soln 30 Gm PO DAILY Lortab (Hydrocodone-Acetaminophen) 5-325 Mg Tab 1 Tab PO Q4H PRN Fleet Enema Rectal (Sodium Phosphates Rectal) 7-19 Gm/118 Ml Enem 118 Ml RECTAL DAILY PRN Cardizem (Diltiazem HCl) 30 Mg Tab 30 Mg PO TID Chlordiazepoxide (Chlordiazepoxide HCl) 25 Mg Cap 25 Mg PO Q4HR PRN Acamprosate DR 333 Mg Tab 333 Mg PO BID Dulcolax Supp (Bisacodyl) 10 Mg Supp 10 Mg RECTAL DAILY PRN Family History Family history significant of heart disease, ND, and ETOH abuse. Social History Tobacco use: seldom Alcohol use: a pint of vodka a day Illcit drug use: denies Physical Exam Vital Signs Vital Signs Date Time Temp Pulse Resp B/P Pulse Ox O2 Delivery O2 Flow Rate FiO2 10/05/16 09:42 98.5 122 26 115/67 Room Air 95 10/05/16 03:50 120 22 122/86 98 Room Air 10/05/16 00:35 110 18 133/79 98 Room Air 10/04/16 21:08 Room Air 10/04/16 21:00 129 20 126/85 96 Room Air 10/04/16 17:41 95 Room Air 10/04/16 17:34 121 24 140/88 Room Air 10/04/16 17:34 Room Air 10/04/16 16:26 98.3 115 16 159/85 99 Physical Exam Alert and awake. No acute distress. Head: NC/AT Neck: No pain with any range of motion and neck. Trachea is midline. No tenderness to palpation along posterior cervical elements. Pulmonary: Normal respiratory effort. Bilateral upper extremity: No deformities Intact sensation distally in median, ulnar, and radial nerve. Intact motor in anterior interosseous, posterior interosseous, and ulnar nerve. 2+ radial artery pulses. Good cap refill. LEFT lower extremity: No deformity, grossly Neurovascularly intact, +EHL/FHL. + PT/DP pulses. Supple compartments. Negative Homans sign. RIGHT lower extremity: Shortened and externally rotated. +log roll, + TTP peritroch area, The knee slightly flexed. grossly Neurovascularly intact, +EHL/ FHL. + PT/DP pulses. Supple compartments Laboratory Laboratory Tests Test 10/04/16 10/04/16 10/04/16 10/05/16 16:20 22:00 23:26 04:32 White Blood Count 7.7 Red Blood Count 3.19 Hemoglobin 10.0 Hematocrit 29.5 Mean Corpuscular Volume 92.6 Mean Corpuscular Hemoglobin 31.4 Mean Corpuscular Hemoglobin 33.9 Concent Red Cell Distribution Width 15.3 Platelet Count 47 Mean Platelet Volume 8.3 Neutrophils (%) (Auto) 75.0 Lymphocytes (%) (Auto) 9.7 Monocytes (%) (Auto) 14.9 Eosinophils (%) (Auto) 0.3 Basophils (%) (Auto) 0.1 Neutrophils # (Auto) 5.8 Lymphocytes # (Auto) 0.8 Monocytes # (Auto) 1.1 Eosinophils # (Auto) 0.0 Basophils # (Auto) 0.0 CBC Comment AUTO DIFF Differential Comment AUTO DIFF CONFIRMED Sodium Level 123 126 125 Potassium Level 4.6 4.5 4.4 Chloride Level 89 87 89 Carbon Dioxide Level 21.3 23.4 23.3 Anion Gap 13 16 13 Blood Urea Nitrogen 31 35 40 Creatinine 1.36 1.57 1.71 Estimat Glomerular Filtration 53 45 41 Rate Random Glucose 90 103 97 Calcium Level 8.3 8.2 8.4 Total Bilirubin 1.7 Aspartate Amino Transf 162 (AST/SGOT) Alanine Aminotransferase 54 (ALT/SGPT) Alkaline Phosphatase 132 Total Protein 7.0 Albumin 3.0 Blood Type A POSITIVE Antibody Screen NEGATIVE Prothrombin Time 13.6 Prothromb Time International 1.2 Ratio Activated Partial 28.2 Thromboplast Time Test 210/05/16 10/05/16 04:33 10:30 13:29 White Blood Count 10.2 Red Blood Count 2.89 Hemoglobin 9.4 Hematocrit 26.6 Mean Corpuscular Volume 92.1 Mean Corpuscular Hemoglobin 32.6 Mean Corpuscular Hemoglobin 35.4 Concent Red Cell Distribution Width 15.1 Platelet Count 61 Mean Platelet Volume 8.4 Neutrophils (%) (Auto) 73.9 Lymphocytes (%) (Auto) 10.6 Monocytes (%) (Auto) 14.9 Eosinophils (%) (Auto) 0.5 Basophils (%) (Auto) 0.1 Neutrophils # (Auto) 7.6 Lymphocytes # (Auto) 1.1 Monocytes # (Auto) 1.5 Eosinophils # (Auto) 0.0 Basophils # (Auto) 0.0 CBC Comment AUTO DIFF Differential Comment AUTO DIFF CONFIRMED Platelet Estimate LOW Platelet Morphology Comment NORMAL Prothrombin Time 13.7 Prothromb Time International 1.2 Ratio Sodium Level 126 Potassium Level 4.5 Chloride Level 89 Carbon Dioxide Level 24.3 Anion Gap 13 Blood Urea Nitrogen 47 Creatinine 1.84 Estimat Glomerular Filtration 38 Rate Random Glucose 95 Serum Osmolality 279 Calcium Level 8.2 Blood Type A POSITIVE Crossmatch Leukocyte-Reduced Red Blood Cells Blood Bank Comment Result Diagram: 10/05/16 0433 10/05/16 1030 Imaging Last 72 hours Impressions Chest X-Ray 10/04/16 1610 Signed Impressions: Service Date/Time: Tuesday, October 04, 2016 16:29 - CONCLUSION: No acute disease. Basilio Matute MD FACR Hip and Pelvis X-Ray 10/04/16 1604 Signed Impressions: Service Date/Time: Tuesday, October 04, 2016 16:29 - CONCLUSION: Intertrochanteric fracture right hip. Basilio Matute MD FACR Head CT 10/04/16 0000 Signed Impressions: Service Date/Time: Tuesday, October 04, 2016 16:43 - CONCLUSION: 1. No acute findings. Mild cortical volume loss. Jack Barnhart MD Assessment & Plan Assessment and Plan 61-year-old male presented after a fall to emergency department complaining of right hip pain and inability to bear weight. X-rays examination taken in the emergency department revealed a displaced right intertrochanteric femur fracture. This fracture is unstable. He is neurovascularly intact. I recommend intramedullary nailing of the RIGHT hip. I discussed my treatment plans with the patient, as well as risks, benefits and alternatives of surgical Intervention versus nonoperative treatment. In this case, the risks of operative intervention involves bleeding, infection, risks of damage to neurovascular structures, the risk of needing further surgery, posttraumatic arthritis and the risks involved with complication from anesthesia. We will proceed with the above procedure. The patient accepts these risks; understands and agrees with my recommendations. I also discussed my proposed postoperative care and follow-up plan. All questions were answered. Plan for OR []. Nothing by mouth []. Patient consented. Thanks for the consult, thanks for allowing me to participate in this patient's medical care. Ishan Richards Jr., MD Oct 05, 2016 13:44
[2016-10-05] MEDS ORDERED: PROMETHAZINE HCL 25 MG TAB PO PRN (13:45)
[2016-10-05] MEDS ORDERED: SODIUM CHLORIDE 0.9% FLUSH 5 ML FLUSH IVF PRN (13:45)
[2016-10-05] MEDS ORDERED: Post-op Orders (for Pharmacy) MISC XX ONE (13:45)
[2016-10-05] MEDS ORDERED: MORPHINE SULFATE 8 MG/ML INJ IV PUSH PRN (13:45)
[2016-10-05] MEDS ORDERED: ZOLPIDEM TARTRATE 5 MG TAB PO PRN (13:45)
[2016-10-05] MEDS ORDERED: BUPIVACAINE/EPINEPHRINE 0.25% PF 30 ML VIAL ONE (14:00)
[2016-10-05] MEDS ORDERED: RESP: ALBUTEROL 2.5 MG/IPRATROPIUM 0.5 MG NEB (PRN) NEB (14:00)
[2016-10-05] MEDS ORDERED: NORC5TAB PO (14:58)
--- NOTE | 2016-10-05 15:07 | RADRPT ---
EXAM DATE/TIME: 10/05/2016 13:56 [facility] COMPARISON: No previous studies available for comparison. INDICATIONS : Right femur fracture. MEDICAL HISTORY : None. SURGICAL HISTORY : None. ENCOUNTER: Subsequent ACUITY: 2 days PAIN SCORE: Non-responsive. LOCATION: Right femur FINDINGS: 5 intraoperative spot images of the right femur. Intramedullary gloria and hip screw in place. Alignment is within normal limits. CONCLUSION: Spot intraoperative images demonstrating intramedullary gloria and hip screw in place. Hiram Roman MD on October 05, 2016 at 15:04 Board Certified Radiologist. This report was verified electronically.
[2016-10-05] MEDS ORDERED: fentaNYL CITRATE 250 MCG/5 ML AMP ONE (15:10)
[2016-10-05] MEDS ORDERED: MIDAZOLAM HCL 2 MG/2 ML VIAL ONE (15:10)
--- NOTE | 2016-10-05 15:27 | PD.OP ---
cc: Yoel Jacinto MD Operative Report Date of Surgery: Oct 05, 2016 Preoperative Diagnosis: right intertrochanteric femur fracture Postoperative Diagnosis: Same Procedure: Right hip intramedullary gloria fixation Anesthesia: Gen. Surgeon: Ishan Richards Advertising Traffic Manager(s): William Aguilera PA-C The surgical procedure was assisted by my physician camp assistant. My physician camp assistant presence was necessary throughout this case for the manipulation and positioning of the surgical extremity. My physician camp assistant was assisting me throughout the duration of this procedure. The skill set of a physician camp assistant was medically necessary to complete this procedure. During the surgical case, the neurosurgical nurse was working at the back table and the physician camp assistant was directly assisting me. Resident Surgeon: None Operation and Findings: Implants used: 380 mm x 11 mm Synthes TFNA troch nail Plan of activity: Patient was seen and evaluated preoperatively. The patient has significant hip pain from proximal femur fracture. The risk and benefits of surgery were discussed in depth with the patient to include bleeding, infection, nonunion, malunion, need for hip replacement, painful hardware, as well as medical competitions including blood clots, stroke, heart attack, and . Informed consent was obtained. Operative site was marked. Patient was brought to the operating room and placed on fracture table. IV sedation was administered by anesthesiologist. Timeout procedure was performed. Hip and leg were prepped with alcohol followed by Hibiclens and draped in the usual sterile fashion. IV antibiotics were given prior to incision. Procedure began with reduction of fracture. Traction was applied. The leg was manipulated to achieve reduction. Excellent reduction was achieved. Fluoroscopy was used to confirm reduction. A three inch incision was made proximal to the trochanter. Subcutaneous tissue was dissected bluntly. Guidepin was placed at the tip of the trochanter and advanced into the femoral canal. Fluoroscopy confirmed appropriate guidepin placement. A opening reamer was placed over the guidepin. A long ball tipped guide pin was now placed down the femoral canal into the center of the distal femur. The nail length was now measured. Fluoroscopy confirmed appropriate guidepin placement. Flexible reamers were now passed over the guidepin to ream the intramedullary canal. The Synthes TFNA nail was attached to the insertion handle. Nail was now placed over the guidepin into the femoral canal. Fluoroscopy confirmed appropriate nail placement. A second incision was made over the lateral thigh. Cannulas were placed through the insertion handle down to the femur. Guidepin was now placed through the femoral nail into the center of the femoral head. Fluoroscopy confirmed appropriate guidepin placement. Screw length was measured. Cannulated drill was placed over the guidepin. Appropriate length lag screw was now placed. Traction was released and compression was applied. The set screw was now tightened in dynamic mode. Next, using perfect ely shoshone technique, one distal interlocking screw was placed. Screw hole predrilled and screw length was measured. Final fluoroscopy revealed well aligned fracture with well-placed hardware. Incision was closed with 3-0 Vicryl and harsh. Sterile dressings were applied. Patient was awakened and transferred to recovery room. POSTP-OP PLAN OF ACTIVITY Antibiotics: Ancef, vancomycin Antiocoagulation: Lovenox Weight bearing status: 50% WB PT/OT: Encourage at least 3 times a day Dressing: Change daily, by RN starting postop day 2 Future procedure planned: none Dispo: likely inpatient rehab Ishan Richards Jr., MD Oct 05, 2016 15:26
[2016-10-05] MEDS: KETOROLAC TROMETHAMINE 30 MG/ML (IVP) VIAL IVP SCH ×2 (15:28→20:49)
[2016-10-05] MEDS ORDERED: DO NOT ADM ANY ANTICOAGULANT DRUGS XX PRN (15:30)
[2016-10-05 17:42] LABS: BICARBONATE 23.6 MEQ/L (21.0-32.0); POTASSIUM 4.6 MEQ/L (3.5-5.1)
[2016-10-05] MEDS: SODIUM CHLORIDE 0.9% FLUSH 5 ML FLUSH IVF SCH (20:07)
[2016-10-05] MEDS ORDERED: SODIUM CHLORIDE 0.9% FLUSH 5 ML FLUSH IV FLUSH SCH (21:00)
[2016-10-06] VITALS (8 sets, daily range): BP systolic 84–102; BP diastolic 54–60; PULSE 101–116; RESP 14–22; TEMP 95.2–97.7; O2SAT 94–100
[2016-10-06 00:19] LABS: BICARBONATE 22.7 MEQ/L (21.0-32.0); POTASSIUM 4.4 MEQ/L (3.5-5.1)
[2016-10-06] MEDS: VANCOMYCIN INJ 1,000 MG in SODIUM CHLOR 0.9% 250 ML INJ 250 ML IV SCH ×2 (01:30→14:11)
[2016-10-06] MEDS: SODIUM CHLOR 0.9% 1000 ML INJ 1,000 ML IV SCH ×2 (01:32→10:25)
[2016-10-06] MEDS: ENOXAPARIN SODIUM 30 MG/0.3 ML SYRINGE SQ SCH ×2 (02:43→14:06)
[2016-10-06] MEDS: KETOROLAC TROMETHAMINE 30 MG/ML (IVP) VIAL IVP SCH ×3 (02:45→14:07)
[2016-10-06 05:51] LABS: BICARBONATE 24.7 MEQ/L (21.0-32.0); POTASSIUM 4.3 MEQ/L (3.5-5.1)
[2016-10-06] MEDS: SODIUM CHLORIDE 0.9% FLUSH 5 ML FLUSH IVF SCH ×2 (09:36→21:00)
[2016-10-06] MEDS: chlordiazePOXIDE 25 MG CAP PO SCH ×3 (09:36→18:17)
[2016-10-06] MEDS: MULTIVITAMINS/MINERALS THERAPEUTIC TAB PO SCH ×2 (09:36→21:25)
[2016-10-06] MEDS: THIAMINE HCL 100 MG TAB PO SCH (09:36)
[2016-10-06] MEDS: ACETAMINOPHEN/HYDROcodone 325 MG/5 MG TAB PO PRN ×2 (09:36→21:38)
[2016-10-06] MEDS: FOLIC ACID 1 MG TAB PO SCH (09:36)
--- NOTE | 2016-10-06 13:47 | EKG ---
Date Performed: 10/05/2016 Time Performed: 22:42:26 PTAGE: 61 years EKG: SINUS TACHYCARDIA WITH SHORT ND INTERVAL ABNORMAL RHYTHM ECG PREVIOUS TRACING : 04/28/2016 19.01 Since previous tracing, no significant change noted DOCTOR: Gracie Villeda Interpretating Date/Time 10/06/2016 13:41:52
--- NOTE | 2016-10-06 15:55 | HHI.PR ---
Subjective Remarks Disposed ORIF of right femur Rising creatinine Denies chest pain or shortness of breath Denies fevers or chills Pain in postsurgical extremity is 6/10 Objective Vitals Vital Signs Date Time Temp Pulse Resp B/P Pulse Ox O2 Delivery O2 Flow Rate FiO2 10/06/16 12:00 96.4 101 22 98/58 100 10/06/16 08:20 95 21 10/06/16 08:00 95.2 110 14 84/56 94 10/06/16 04:00 97.4 116 16 100/56 98 10/06/16 00:00 96.5 113 18 102/60 98 10/05/16 21:50 99 Nasal Cannula 2.00 10/05/16 21:25 114 10/05/16 20:00 96.7 117 16 141/70 97 10/05/16 15:45 113 19 144/83 98 Nasal Cannula 3 10/05/16 15:45 96.9 120 20 112/82 98 I/O 10/05/16 10/05/16 10/05/16 10/06/16 10/06/16 10/06/16 07:00 15:00 23:00 07:00 15:00 23:00 Intake Total 2119 ml 1091 ml Output Total 30 ml 440 ml Balance 2089 ml 651 ml Intake Oral 600 ml 480 ml IV Total 519 ml 611 ml Other 1000 ml Output Urine Total 440 ml Estimated Blood Loss 30 ml # Voids 1 # Bowel Movements 0 1 Result Diagram: 10/05/16 0433 10/06/16 0500 Imaging Last Impressions Renal Ultrasound 10/05/16 0000 Signed Impressions: Service Date/Time: October 09:47 - CONCLUSION: Normal renal sonogram. Joe Castro MD Femur X-Ray 10/05/16 0000 Signed Impressions: Service Date/Time: October 13:56 - CONCLUSION: Spot intraoperative images demonstrating intramedullary gloria and hip screw in place. Hiram Roman MD Chest X-Ray 10/04/16 1610 Signed Impressions: Service Date/Time: Tuesday, October 04, 2016 16:29 - CONCLUSION: No acute disease. Basilio Matute MD FACR Head CT 10/04/16 0000 Signed Impressions: Service Date/Time: Tuesday, October 04, 2016 16:43 - CONCLUSION: 1. No acute findings. Mild cortical volume loss. Jack Barnhart MD Objective Remarks GENERAL: Well-developed male patient in NAD, drowsy. SKIN: Warm and dry. HEAD: Atraumatic. Normocephalic. EYES: Pupils equal and round. No scleral icterus. No injection or drainage. ENT: No nasal bleeding or discharge. Mucous membranes pink and moist. NECK: Trachea midline. CARDIOVASCULAR: Tachycardic, regular rhythm. No murmur. RESPIRATORY: No accessory muscle use. Clear to auscultation. Breath sounds equal bilaterally. GASTROINTESTINAL: Abdomen soft, non-tender, nondistended. Hepatic and splenic margins not palpable. MUSCULOSKELETAL: Extremities without clubbing, cyanosis, or edema. RLE shortened with external rotation. 2+ bilateral pedal pulses. NEUROLOGICAL: Awake and alert. No obvious cranial nerve deficits. Motor grossly within normal limits. Normal speech. PSYCHIATRIC: Appropriate mood and affect; insight and judgment normal. Medications and IVs Current Medications Medications (Trade) Dose Ordered Sig/Fernanda Route Start Time Stop Time Status Last Admin (Zofran Inj) 4 mg Q6H PRN IVP 10/04/16 21:00 (Narcan Inj) 0.4 mg UNSCH PRN IV 10/04/16 21:00 (Morphine Inj) 2 mg Q3H PRN IV PUSH 10/04/16 22:45 10/05/16 09:50 (Vitamin B1) 100 mg DAILY PO 10/05/16 09:00 10/06/16 09:36 (Librium) 25 mg TID PO 10/05/16 09:00 10/06/16 14:06 (Ativan Inj) 1 mg Q2H PRN IV PUSH 10/04/16 22:45 10/05/16 03:50 (Folate) 1 mg DAILY PO 10/05/16 09:30 10/06/16 09:36 (Theragran M Tab) 1 tab DAILY PO 10/06/16 09:00 10/11/16 08:59 10/06/16 09:36 (Romazicon Inj) 0.2 mg Q1M PRN IV PUSH 10/05/16 09:30 (Ativan) 1 mg Q4H PRN PO 10/05/16 09:30 (Ativan Inj) 1 mg Q4H PRN IV PUSH 10/05/16 09:30 (Ativan) 2 mg Q2H PRN PO 10/05/16 09:30 (Ativan Inj) 2 mg Q2H PRN IV PUSH 10/05/16 09:30 (Ativan Inj) 2 mg Q1H PRN IV PUSH 10/05/16 09:30 (Ativan Inj) 2 mg Q15M PRN IV PUSH 10/05/16 09:30 (NS Flush) 2 ml UNSCH PRN IVF 10/05/16 13:45 (NS Flush) 2 ml BID IVF 10/05/16 21:00 10/06/16 09:36 (Lovenox Inj) 30 mg Q12H SQ 10/06/16 02:15 10/06/16 14:06 (Morphine Inj) 5 mg Q3H PRN IV PUSH 10/05/16 13:45 ([place] 5-325 Mg) 1 tab Q4H PRN PO 10/05/16 13:45 10/06/16 09:36 ([place] 5-325 Mg) 2 tab Q4H PRN PO 10/05/16 13:45 (Toradol Inj) 15 mg Q6H IVP 10/05/16 15:00 10/07/16 09:01 10/06/16 14:07 (Phenergan) 25 mg Q4H PRN PO 10/05/16 13:45 (Theragran M Tab) 1 tab BID PO 10/06/16 21:00 12/05/16 20:59 (Colace) 100 mg BID PO 10/06/16 21:00 (Ambien) 5 mg HS PRN PO 10/05/16 13:45 Urinary Catheter: No Vascular Central Line Catheter: No A/P Problem List: (1) Hip fracture, right ICD Code: S72.001A Status: Acute Plan: X-ray showed right intertrochanteric fracture. Orthopedics was reconsulted. Continue think control as per orthopedic surgery. Patient status post ORIF with intramedullary gloria fixation. Continue physical therapy, patient will need PT at rehabilitation. (2) Hyponatremia ICD Code: E87.1 Status: Acute Plan: Na 123, previously 125 in . Likely hypervolemia hyponatremia related to alcohol abuse. Initially treated with normal saline at 125 mL per hour. Sodium initially improved, now stable at 127. (3) ALEX (acute kidney injury) ICD Code: N17.9 Status: Acute Plan: Creatinine trending up. Today 2.67. Continue IV fluids, will consider nephrology consultation if keeps worsening. Activity and monitor BUN/creatinine, history of stenosis and avoid nephrotoxins. Patient's creatinine previously 0.6 in May 2016. (4) Alcohol withdrawal ICD Code: F10.239 Status: Chronic Plan: Continue CIWA protocol, recent TAB. Seizure precautions. Multivitamin, folate and thiamine daily. (5) Liver cirrhosis ICD Code: K74.60 Status: Chronic Plan: Patient on hospice. Further hepatotoxins. (6) COPD (chronic obstructive pulmonary disease) ICD Code: J44.9 Status: Chronic Plan: Stable. Continue DuoNeb's when necessary. (7) Hypotension ICD Code: I95.9 Status: Acute Plan: Dictated hydration. We'll give IV fluid bolus. Assessment and Plan DVT Prophylaxis: teds/SCDs to nonoperative leg. Avoid chemical prophylaxis for now with upcoming surgery. Discharge Planning Continue to monitor the medical floor. DC pending clinical improvement of creatinine, hypotension, orthopedic surgery clearance. Problem Qualifiers (1) Hip fracture, right: Qualified Code: S72.001A - Hip fracture, right, closed, initial encounter (2) Hypotension: Qualified Code: I95.9 - Hypotension, unspecified hypotension type Doug Gama MD Oct 06, 2016 15:55
--- NOTE | 2016-10-06 17:53 | PD.ORT.PN ---
Subjective Subjective Remarks no issues Objective Vitals Vital Signs Date Time Temp Pulse Resp B/P Pulse Ox O2 Delivery O2 Flow Rate FiO2 10/06/16 12:00 96.4 101 22 98/58 100 10/06/16 08:20 95 21 10/06/16 08:00 95.2 110 14 84/56 94 10/06/16 04:00 97.4 116 16 100/56 98 10/06/16 00:00 96.5 113 18 102/60 98 10/05/16 21:50 99 Nasal Cannula 2.00 10/05/16 21:25 114 10/05/16 20:00 96.7 117 16 141/70 97 I/O 10/05/16 10/05/16 10/05/16 10/06/16 10/06/16 10/06/16 07:00 15:00 23:00 07:00 15:00 23:00 Intake Total 2119 ml 1091 ml Output Total 30 ml 440 ml Balance 2089 ml 651 ml Intake Oral 600 ml 480 ml IV Total 519 ml 611 ml Other 1000 ml Output Urine Total 440 ml Estimated Blood Loss 30 ml # Voids 1 # Bowel Movements 0 1 Result Diagram: 10/05/16 0433 10/06/16 0500 Objective Remarks RLE: nvi. dressing CDI. 2+ PT/DP. Assessment & Plan Assessment and Plan POD# 1- right hip IMN no issues postop abx dc today 50% wb RLE dressing changes qday starting pod 2 dvt ppx likely dc to inpatient rehab Ishan Richards Jr., MD Oct 06, 2016 17:53
[2016-10-06] MEDS: DOCUSATE SODIUM 100 MG CAP PO SCH (21:25)
[2016-10-06] MEDS ORDERED: SODIUM CHLORID 0.9% 500 ML INJ 500 ML IV ONE (22:45)
[2016-10-07] VITALS (13 sets, daily range): BP systolic 86–145; BP diastolic 49–88; PULSE 98–116; RESP 16–20; TEMP 96.9–97.8; O2SAT 94–98
[2016-10-07] MEDS: SODIUM CHLOR 0.9% 1000 ML INJ 1,000 ML IV SCH ×3 (00:01→14:02)
[2016-10-07] MEDS: ENOXAPARIN SODIUM 30 MG/0.3 ML SYRINGE SQ SCH ×2 (03:02→14:03)
[2016-10-07 07:21] LABS: AUTOMATED NEUTROPHIL # 2.2 TH/MM3 (1.8-7.7); BASOPHIL % 0.7 % (0.0-2.0); EOSINOPHIL # 0.2 TH/MM3 (0-0.4); EOSINOPHIL % 3.7 % (0.0-4.0); LYMPH % 15.2 % (9.0-44.0); LYMPHOCYTE # 0.6 TH/MM3 (1.0-4.8); MEAN CELL VOLUME 95.6 FL (80.0-100.0); MEAN CORPUSCULAR HEMOGLOBIN 31.8 PG (27.0-34.0); MEAN CORPUSCULAR HGB CONC 33.2 % (32.0-36.0); MONO % 25.8 % (0.0-8.0); NEUT % 54.6 % (16.0-70.0); PLATELET COUNT 61 TH/MM3 (150-450); RED BLOOD COUNT 1.94 MIL/MM3 (4.50-5.90); RED CELL DISTRIBUTION WIDTH 15.1 % (11.6-17.2); WHITE BLOOD COUNT 4.1 TH/MM3 (4.0-11.0)
[2016-10-07 07:22] LABS: BICARBONATE 22.6 MEQ/L (21.0-32.0); CALCIUM-PROTEIN CORRECTED 8.2 MG/DL (8.5-10.1); MAGNESIUM 1.8 MG/DL (1.5-2.5); POTASSIUM 4.2 MEQ/L (3.5-5.1); TOTAL BILIRUBIN ADULT 1.3 MG/DL (0.2-1.0)
--- NOTE | 2016-10-07 07:37 | PD.ORT.PN ---
Subjective Subjective Remarks pt complaining of post op pain involving right hip Objective Vitals Vital Signs Date Time Temp Pulse Resp B/P Pulse Ox O2 Delivery O2 Flow Rate FiO2 10/07/16 04:00 97.8 116 20 125/88 94 10/07/16 01:01 86/52 10/07/16 00:00 97.8 101 20 87/49 97 10/06/16 20:00 97.7 104 18 90/54 97 10/06/16 16:00 97.5 101 20 98/57 97 10/06/16 12:00 96.4 101 22 98/58 100 10/06/16 09:30 97/58 10/06/16 08:20 95 21 10/06/16 08:00 95.2 110 14 84/56 94 I/O 10/06/16 10/06/16 10/06/16 10/07/16 10/07/16 10/07/16 07:00 15:00 23:00 07:00 15:00 23:00 Intake Total 1091 ml 480 ml 480 ml 1229 ml Output Total 440 ml 500 ml 200 ml 300 ml Balance 651 ml -20 ml 280 ml 929 ml Intake Oral 480 ml 480 ml 480 ml 220 ml IV Total 611 ml 1009 ml Output Urine Total 440 ml 500 ml 200 ml 300 ml # Voids 1 # Bowel Movements 1 1 1 1 Result Diagram: 10/05/16 0433 10/06/16 0500 Objective Remarks seen by Dr. Ignacio Li RLE: nvi. dressing CDI. 2+ PT/DP. Assessment & Plan Assessment and Plan POD# 2- right hip IMN hx of alcoholism but has not drank any alcohol in two weeks 50% wb RLE dressing changes qday starting today dvt ppx likely dc to inpatient rehab Angelina Luis Oct 07, 2016 07:23
[2016-10-07 07:52] LABS: HEMO FLAGS AUTO DIFF
[2016-10-07 07:53] LABS: HEMATOCRIT 18.6 % (39.0-51.0)
[2016-10-07] MEDS: MULTIVITAMINS/MINERALS THERAPEUTIC TAB PO SCH ×3 (09:00→21:30)
[2016-10-07] MEDS: DOCUSATE SODIUM 100 MG CAP PO SCH ×2 (09:00→21:00)
[2016-10-07] MEDS: FOLIC ACID 1 MG TAB PO SCH (10:18)
[2016-10-07] MEDS: THIAMINE HCL 100 MG TAB PO SCH (10:19)
[2016-10-07] MEDS: chlordiazePOXIDE 25 MG CAP PO SCH ×3 (10:20→18:00)
[2016-10-07] MEDS: SODIUM CHLORIDE 0.9% FLUSH 5 ML FLUSH IVF SCH ×2 (10:20→21:00)
[2016-10-07] MEDS: ACETAMINOPHEN/HYDROcodone 325 MG/5 MG TAB PO PRN ×2 (11:04→21:30)
[2016-10-07 11:25] LABS: BANDS 10 % (0-6); EOSINOPHILS 3 % (0-4); NEUTROPHIL # MANUAL DIFF 2.7 TH/MM3 (1.8-7.7); POLYS (SEG NEUTROPHILS) 56 % (16-70); WBC DIFF SAMPLE 100
[2016-10-07 11:26] LABS: PLATELET ESTIMATE SMEAR LOW (NORMAL); PLATELET MORPHOLOGY NORMAL (NORMAL); ROULEAUX PRESENT (NORMAL); SCAN/DIFF FINAL DIFF MANUAL
[2016-10-07] MEDS ORDERED: CALCIUM CHLORIDE INJ 2 GM in SODIUM CHLORIDE 0.9% INJ 100 ML IV ONE (12:00)
--- NOTE | 2016-10-07 12:31 | MB ---
cc: Ronn BRADFORD DATE OF CONSULTATION: 10/07/2016 HISTORY OF PRESENT ILLNESS Mr. Montes is a 61-year-old white male with cirrhosis of the liver, continued to drink until recently up to a pint a day, and also continued to smoke up to the time of admission. He fell in [place] and fractured his right femur. I am asked to see him for followup of COPD. I was able to identify pulmonary functions from earlier in 2016 and he did have moderately severe disease with an FEV1 of 40-50%. The patient is in no distress at rest. He is postoperative repair of fracture of the right femur. He is denying shortness of breath, cough or congestion. He is on room air with a saturation of 95%. I asked him if he was being treated for COPD. He takes no inhalation therapy at home and denies any problem with breathing. PAST MEDICAL HISTORY Significant for - 1. Alcoholism. 2. Cirrhosis of the liver. 3. Recurrent GI bleeding. 4. Chronic hyponatremia. 5. Hypertension. 6. No prior cardiovascular history such as myocardial infarction or CHF. 7. Previous left ankle repair. 8. Vasectomy. 9. He fractured his right hip in February of this year. 10. He was admitted here in April of 2016 with GI bleeding. ALLERGIES NONE KNOWN. MEDICATIONS CURRENTLY Reviewed in the EMR. He has been placed on prophylactic Lovenox postoperatively. SOCIAL HISTORY He lives in an [place]. Smoking and his drinking as noted above. FAMILY HISTORY Noncontributory. REVIEW OF SYSTEMS He denies chest pain, cough, shortness of breath or desire for a cigarette. He says he is going to stop. He also says he was detoxed from alcohol a week ago. PHYSICAL EXAMINATION VITAL SIGNS: 97 degrees, pulse 100, R 18, blood pressure 106/50, sat is 95% on room air. HEENT: Sclerae anicteric. NECK: Neck veins are flat. No adenopathy in the neck or supraclavicular region. CHEST: His chest is entirely clear. No wheezes, rales and no congestion. CARDIOVASCULAR: Regular heart rhythm. No harsh murmur. EXTREMITIES: No significant peripheral edema. No calf tenderness. IMAGING Chest x-ray reveals clear lung silverio. DISCUSSION Mr. Montes presents with a right femoral fracture that has been repaired. He is having no respiratory problems at present. I talked to him about the importance of smoking cessation in light of the underlying COPD and he understands that and says he has quit. I will order him p.r.n. aerosol treatments. It does not appear at this point that he needs any specific therapy to intervene. I noticed that he is in the [facility] and followup there would be appropriate for his COPD after discharge. I will not follow him routinely as he is stable. If I can be of further assistance please reconsult. R. MD KIRTI Ayala/BJF /10:35 AM /12:14 PM
--- NOTE | 2016-10-07 13:49 | HHI.PR ---
Subjective Remarks Patient complaints of dark stools, noted to be tachycardic Hemoglobin dropped from up in 4-6.2 Denies dizziness Creatinine trending up Low calcium Low phosphorus. Objective Vitals Vital Signs Date Time Temp Pulse Resp B/P Pulse Ox O2 Delivery O2 Flow Rate FiO2 10/07/16 12:58 97.6 100 18 100/54 97 10/07/16 08:00 97.3 105 19 106/50 98 10/07/16 04:00 97.8 116 20 125/88 94 10/07/16 01:01 86/52 10/07/16 00:00 97.8 101 20 87/49 97 10/06/16 20:00 97.7 104 18 90/54 97 10/06/16 16:00 97.5 101 20 98/57 97 I/O 10/06/16 10/06/16 10/06/16 10/07/16 10/07/16 10/07/16 07:00 15:00 23:00 07:00 15:00 23:00 Intake Total 1091 ml 480 ml 480 ml 1229 ml Output Total 440 ml 500 ml 200 ml 300 ml Balance 651 ml -20 ml 280 ml 929 ml Intake Oral 480 ml 480 ml 480 ml 220 ml IV Total 611 ml 1009 ml Output Urine Total 440 ml 500 ml 200 ml 300 ml # Voids 1 # Bowel Movements 1 1 1 1 Result Diagram: 10/07/16 0633 10/07/16 0633 Imaging Last Impressions Renal Ultrasound 10/05/16 0000 Signed Impressions: Service Date/Time: October 09:47 - CONCLUSION: Normal renal sonogram. Joe Castro MD Femur X-Ray 10/05/16 0000 Signed Impressions: Service Date/Time: October 13:56 - CONCLUSION: Spot intraoperative images demonstrating intramedullary gloria and hip screw in place. Hiram Roman MD Chest X-Ray 10/04/16 1610 Signed Impressions: Service Date/Time: Tuesday, October 04, 2016 16:29 - CONCLUSION: No acute disease. Basilio Matute MD FACR Hip and Pelvis X-Ray 10/04/16 1604 Signed Impressions: Service Date/Time: Tuesday, October 04, 2016 16:29 - CONCLUSION: Intertrochanteric fracture right hip. Basilio Matute MD FACR Head CT 10/04/16 0000 Signed Impressions: Service Date/Time: Tuesday, October 04, 2016 16:43 - CONCLUSION: 1. No acute findings. Mild cortical volume loss. Jack Barnhart MD Objective Remarks GENERAL: Well-developed male patient in NAD, drowsy. SKIN: Warm and dry. HEAD: Atraumatic. Normocephalic. EYES: Pupils equal and round. No scleral icterus. No injection or drainage. ENT: No nasal bleeding or discharge. Mucous membranes pink and moist. NECK: Trachea midline. CARDIOVASCULAR: Tachycardic, regular rhythm. No murmur. RESPIRATORY: No accessory muscle use. Clear to auscultation. Breath sounds equal bilaterally. GASTROINTESTINAL: Abdomen soft, non-tender, nondistended. Hepatic and splenic margins not palpable. MUSCULOSKELETAL: Extremities without clubbing, cyanosis, or edema. RLE shortened with external rotation. 2+ bilateral pedal pulses. NEUROLOGICAL: Awake and alert. No obvious cranial nerve deficits. Motor grossly within normal limits. Normal speech. PSYCHIATRIC: Appropriate mood and affect; insight and judgment normal. Medications and IVs Current Medications Medications (Trade) Dose Ordered Sig/Fernanda Route Start Time Stop Time Status Last Admin (Zofran Inj) 4 mg Q6H PRN IVP 10/04/16 21:00 (Narcan Inj) 0.4 mg UNSCH PRN IV 10/04/16 21:00 (Morphine Inj) 2 mg Q3H PRN IV PUSH 10/04/16 22:45 10/05/16 09:50 (Vitamin B1) 100 mg DAILY PO 10/05/16 09:00 10/07/16 10:19 (Librium) 25 mg TID PO 10/05/16 09:00 10/07/16 10:20 (Ativan Inj) 1 mg Q2H PRN IV PUSH 10/04/16 22:45 10/05/16 03:50 (Folate) 1 mg DAILY PO 10/05/16 09:30 10/07/16 10:18 (Theragran M Tab) 1 tab DAILY PO 10/06/16 09:00 10/11/16 08:59 10/07/16 10:19 (Romazicon Inj) 0.2 mg Q1M PRN IV PUSH 10/05/16 09:30 (Ativan) 1 mg Q4H PRN PO 10/05/16 09:30 (Ativan Inj) 1 mg Q4H PRN IV PUSH 10/05/16 09:30 (Ativan) 2 mg Q2H PRN PO 10/05/16 09:30 (Ativan Inj) 2 mg Q2H PRN IV PUSH 10/05/16 09:30 (Ativan Inj) 2 mg Q1H PRN IV PUSH 10/05/16 09:30 (Ativan Inj) 2 mg Q15M PRN IV PUSH 10/05/16 09:30 (NS Flush) 2 ml UNSCH PRN IVF 10/05/16 13:45 (NS Flush) 2 ml BID IVF 10/05/16 21:00 10/07/16 10:20 (Lovenox Inj) 30 mg Q12H SQ 10/06/16 02:15 10/07/16 03:02 (Morphine Inj) 5 mg Q3H PRN IV PUSH 10/05/16 13:45 ([place] 5-325 Mg) 1 tab Q4H PRN PO 10/05/16 13:45 10/07/16 11:04 ([place] 5-325 Mg) 2 tab Q4H PRN PO 10/05/16 13:45 (Phenergan) 25 mg Q4H PRN PO 10/05/16 13:45 (Theragran M Tab) 1 tab BID PO 10/06/16 21:00 12/05/16 20:59 10/06/16 21:25 (Colace) 100 mg BID PO 10/06/16 21:00 Zolpidem Tartrate 5 mg 5 mg HS PRN PO 10/05/16 13:45 (NS 1000 ml Inj) 1,000 ml @ 125 mls/hr Q8H IV 10/06/16 22:45 10/07/16 00:01 (K-Phos Neutral) 250 mg Q8HR PO 10/07/16 14:00 Urinary Catheter: No Vascular Central Line Catheter: No A/P Problem List: (1) Hip fracture, right ICD Code: S72.001A Status: Acute (2) Hyponatremia ICD Code: E87.1 Status: Acute (3) ALEX (acute kidney injury) ICD Code: N17.9 Status: Acute (4) Alcohol withdrawal ICD Code: F10.239 Status: Chronic (5) Liver cirrhosis ICD Code: K74.60 Status: Chronic (6) COPD (chronic obstructive pulmonary disease) ICD Code: J44.9 Status: Chronic (7) Hypotension ICD Code: I95.9 Status: Acute (8) Posthemorrhagic anemia ICD Code: D50.0 Status: Acute Plan: Patient with dropp in hemoglobin from 9 to 6.2. Transfuse 2 units prbc suspect upper GI bleed with c/o dark stools Consult GI Patient has h/o etoh abuse ----> Esophageal varices in the past - will likely need EGD Monitor H/H post - transfusion and transfuse as needed for hemoglobin goal > 9. (9) GI bleed ICD Code: K92.2 Status: Acute Plan: Likely upper Gi bleed. consult GI - will likely need EGD. Transfuse as above. Assessment and Plan (1) Hip fracture, right ICD Code: S72.001A Status: Acute Plan: X-ray showed right intertrochanteric fracture. Orthopedics was reconsulted. Continue think control as per orthopedic surgery. Patient status post ORIF with intramedullary gloria fixation. Continue physical therapy, patient will need PT at rehabilitation. (2) Hyponatremia ICD Code: E87.1 Status: Acute Plan: Na 123, previously 125 in . Likely hypervolemia hyponatremia related to alcohol abuse. Initially treated with normal saline at 125 mL per hour. Sodium initially improved, now stable at 127. (3) ALEX (acute kidney injury) ICD Code: N17.9 Status: Acute Plan: Creatinine trending up. Today 2.67. Continue IV fluids, will consider nephrology consultation if keeps worsening. Activity and monitor BUN/creatinine, history of stenosis and avoid nephrotoxins. Patient's creatinine previously 0.6 in May 2016. (4) Alcohol withdrawal ICD Code: F10.239 Status: Chronic Plan: Continue CIWA protocol, recent TAB. Seizure precautions. Multivitamin, folate and thiamine daily. (5) Liver cirrhosis ICD Code: K74.60 Status: Chronic Plan: Patient on hospice. Further hepatotoxins. (6) COPD (chronic obstructive pulmonary disease) ICD Code: J44.9 Status: Chronic Plan: Stable. Continue DuoNeb's when necessary. (7) Hypotension ICD Code: I95.9 Status: Acute Plan: Patient with intermitent episodes of hypotension - improved with IV fluids. Likely due to GI bleed since patient's hemoglobin dropped and patient c/ o dark stools. DVT Prophylaxis: teds/SCDs to nonoperative leg. Avoid chemical prophylaxis for now with upcoming surgery. Discharge Planning Continue to monitor the medical floor. DC pending clinical improvement of creatinine, hypotension, orthopedic surgery clearance. Problem Qualifiers (1) Hip fracture, right: Qualified Code: S72.001A - Hip fracture, right, closed, initial encounter (2) Hypotension: Qualified Code: I95.9 - Hypotension, unspecified hypotension type Doug Gama MD Oct 07, 2016 13:48
[2016-10-07] MEDS: POTASSIUM PHOSPHATE/SODIUM PHOSPHATE 250 MG TAB PO SCH ×2 (14:03→21:30)
--- NOTE | 2016-10-07 14:51 | PD.CONS ---
HPI History of Present Illness This is a 61 year old on hospice with a history of HTN, copd, ETOH abuse, esophageal varices/banding, and alcoholic cirrhosis was sent from the Hospice care center after falling on the floor. He was found to have Right hip fracture , he is s/p reduction of right femur with intramedullary Luther fixation on . GI services consulted for melena, anemia of 6.2. Patient has hx of varices, EGD on (04/16/16) Esophageal varices with signs of recent bleeding with band X 4. Patient continue to drink till a week ago. Patient started noticing black tarry stools after having the surgery done about twice daily. He denies nausea, vomiting, hematemesis, abdomen pain, or hematochezia. (Matt Jacobs) PFSH Past Medical History HTN Cirrhosis COPD ETOH abuse Multiple GI Bleeds Chronic hyponatremia varices Past Surgical History left ankle repair vasectomy right hip surgery (Matt Jacobs) Coded Allergies: No Known Allergies (Unverified , 10/04/16) Medications Current Medications Medications (Trade) Dose Ordered Sig/Fernanda Route Start Time Stop Time Status Last Admin (Zofran Inj) 4 mg Q6H PRN IVP 10/04/16 21:00 (Narcan Inj) 0.4 mg UNSCH PRN IV 10/04/16 21:00 (Morphine Inj) 2 mg Q3H PRN IV PUSH 10/04/16 22:45 10/05/16 09:50 (Vitamin B1) 100 mg DAILY PO 10/05/16 09:00 10/07/16 10:19 (Librium) 25 mg TID PO 10/05/16 09:00 10/07/16 14:03 (Ativan Inj) 1 mg Q2H PRN IV PUSH 10/04/16 22:45 10/05/16 03:50 (Folate) 1 mg DAILY PO 10/05/16 09:30 10/07/16 10:18 (Theragran M Tab) 1 tab DAILY PO 10/06/16 09:00 10/11/16 08:59 10/07/16 10:19 (Romazicon Inj) 0.2 mg Q1M PRN IV PUSH 10/05/16 09:30 (Ativan) 1 mg Q4H PRN PO 10/05/16 09:30 (Ativan Inj) 1 mg Q4H PRN IV PUSH 10/05/16 09:30 (Ativan) 2 mg Q2H PRN PO 10/05/16 09:30 (Ativan Inj) 2 mg Q2H PRN IV PUSH 10/05/16 09:30 (Ativan Inj) 2 mg Q1H PRN IV PUSH 10/05/16 09:30 (Ativan Inj) 2 mg Q15M PRN IV PUSH 10/05/16 09:30 (NS Flush) 2 ml UNSCH PRN IVF 10/05/16 13:45 (NS Flush) 2 ml BID IVF 10/05/16 21:00 10/07/16 10:20 (Lovenox Inj) 30 mg Q12H SQ 10/06/16 02:15 10/07/16 14:03 (Morphine Inj) 5 mg Q3H PRN IV PUSH 10/05/16 13:45 ([place] 5-325 Mg) 1 tab Q4H PRN PO 10/05/16 13:45 10/07/16 11:04 ([place] 5-325 Mg) 2 tab Q4H PRN PO 10/05/16 13:45 (Phenergan) 25 mg Q4H PRN PO 10/05/16 13:45 (Theragran M Tab) 1 tab BID PO 10/06/16 21:00 12/05/16 20:59 10/06/16 21:25 (Colace) 100 mg BID PO 10/06/16 21:00 Zolpidem Tartrate 5 mg 5 mg HS PRN PO 10/05/16 13:45 (NS 1000 ml Inj) 1,000 ml @ 125 mls/hr Q8H IV 10/06/16 22:45 10/07/16 14:02 (K-Phos Neutral) 250 mg Q8HR PO 10/07/16 14:00 10/07/16 14:03 Family History Family history significant of heart disease, HI, and ETOH abuse. Social History Tobacco use: seldom Alcohol use: a pint of vodka a day, but quit a week ago Illcit drug use: denies (Amawi,Vetoawjorge THIRD GRADE TEACHER) Review of Systems Constitutional: DENIES: Fever, Chills Endocrine: DENIES: Polyuria Eyes: DENIES: Double Vision Ears, nose, mouth, throat: DENIES: Hoarseness Respiratory: DENIES: Shortness of breath Cardiovascular: DENIES: Lower Extremity Edema Gastrointestinal: COMPLAINS OF: Black stools, Diarrhea, DENIES: Abdominal pain , Bloody stools, Constipation, Nausea, Vomiting, Difficulty Swallowing, Anorexia , Odynophagia, Swelling of Abdomen, Heartburn, Hematemesis Genitourinary: DENIES: Hematuria Musculoskeletal: DENIES: Neck pain Integumentary: DENIES: Jaundice Hematologic/lymphatic: DENIES: Bruising Immunologic/allergic: DENIES: Eczema Neurologic: DENIES: Abnormal gait Psychiatric: DENIES: Anxiety (Amawi,Khawla THIRD GRADE TEACHER) GI Exam Vitals I&O Vital Signs Date Time Temp Pulse Resp B/P Pulse Ox O2 Delivery O2 Flow Rate FiO2 10/07/16 12:58 97.6 100 18 100/54 97 10/07/16 08:00 97.3 105 19 106/50 98 10/07/16 04:00 97.8 116 20 125/88 94 10/07/16 01:01 86/52 10/07/16 00:00 97.8 101 20 87/49 97 10/06/16 20:00 97.7 104 18 90/54 97 10/06/16 16:00 97.5 101 20 98/57 97 I/O 10/06/16 10/06/16 10/06/16 10/07/16 10/07/16 10/07/16 07:00 15:00 23:00 07:00 15:00 23:00 Intake Total 1091 ml 480 ml 480 ml 1229 ml Output Total 440 ml 500 ml 200 ml 300 ml Balance 651 ml -20 ml 280 ml 929 ml Intake Oral 480 ml 480 ml 480 ml 220 ml IV Total 611 ml 1009 ml Output Urine Total 440 ml 500 ml 200 ml 300 ml # Voids 1 # Bowel Movements 1 1 1 1 Imaging Last Impressions Renal Ultrasound 10/05/16 0000 Signed Impressions: Service Date/Time: October 09:47 - CONCLUSION: Normal renal sonogram. Joe Castro MD Femur X-Ray 10/05/16 0000 Signed Impressions: Service Date/Time: October 13:56 - CONCLUSION: Spot intraoperative images demonstrating intramedullary luther and hip screw in place. Hiram Roman MD Chest X-Ray 10/04/16 1610 Signed Impressions: Service Date/Time: Tuesday, October 04, 2016 16:29 - CONCLUSION: No acute disease. Basilio Matute MD FACR Hip and Pelvis X-Ray 10/04/16 1604 Signed Impressions: Service Date/Time: Tuesday, October 04, 2016 16:29 - CONCLUSION: Intertrochanteric fracture right hip. Basilio Matute MD FACR Head CT 10/04/16 0000 Signed Impressions: Service Date/Time: Tuesday, October 04, 2016 16:43 - CONCLUSION: 1. No acute findings. Mild cortical volume loss. Jack Barnhart MD Laboratory Test 10/07/16 10/07/16 06:33 10:47 White Blood Count 4.1 TH/MM3 Red Blood Count 1.94 MIL/MM3 Hemoglobin 6.2 GM/DL Hematocrit 18.6 % Mean Corpuscular Volume 95.6 FL Mean Corpuscular Hemoglobin 31.8 PG Mean Corpuscular Hemoglobin 33.2 % Concent Red Cell Distribution Width 15.1 % Platelet Count 61 TH/MM3 Mean Platelet Volume 7.4 FL Neutrophils (%) (Auto) 54.6 % Lymphocytes (%) (Auto) 15.2 % Monocytes (%) (Auto) 25.8 % Eosinophils (%) (Auto) 3.7 % Basophils (%) (Auto) 0.7 % Neutrophils # (Auto) 2.2 TH/MM3 Lymphocytes # (Auto) 0.6 TH/MM3 Monocytes # (Auto) 1.1 TH/MM3 Eosinophils # (Auto) 0.2 TH/MM3 Basophils # (Auto) 0.0 TH/MM3 CBC Comment AUTO DIFF Differential Total Cells 100 Counted Neutrophils % (Manual) 56 % Band Neutrophils % 10 % Lymphocytes % 17 % Monocytes % 14 % Eosinophils % 3 % Neutrophils # (Manual) 2.7 TH/MM3 Differential Comment FINAL DIFF MANUAL Platelet Estimate LOW Platelet Morphology Comment NORMAL Rouleau PRESENT Sodium Level 127 MEQ/L Potassium Level 4.2 MEQ/L Chloride Level 94 MEQ/L Carbon Dioxide Level 22.6 MEQ/L Anion Gap 10 MEQ/L Blood Urea Nitrogen 57 MG/DL Creatinine 3.33 MG/DL Estimat Glomerular Filtration 19 ML/MIN Rate Random Glucose 111 MG/DL Calcium Level 7.2 MG/DL Protein Corrected Calcium 8.2 MG/DL Phosphorus Level 1.9 MG/DL Magnesium Level 1.8 MG/DL Total Bilirubin 1.3 MG/DL Aspartate Amino Transf 72 U/L (AST/SGOT) Alanine Aminotransferase 21 U/L (ALT/SGPT) Alkaline Phosphatase 105 U/L Total Protein 5.3 GM/DL Albumin 2.2 GM/DL Blood Type A POSITIVE Antibody Screen NEGATIVE Crossmatch Leukocyte-Reduced Red Blood Cells Blood Bank Comment Physical Examination HEENT: normocephalic; atraumatic; no jaundice. Throat is clear. NECK: Neck is supple, no JVD, no lymphadenopathy. CHEST: Chest is clear to auscultation and percussion. CARDIAC: Regular rate and rhythm with no murmur gallop or rubs. ABDOMEN: firm, slightly distended, nontender; hepatosplenomegaly; bowel sounds are present in all four quadrants. EXTREMITIES: No clubbing, cyanosis, or edema. SKIN: Normal; no rash; no jaundice. 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 (Matt Jacobs) Assessment and Plan Plan - Upper GI Bleed/melena, history of varices. hgb on admission 10, today hgb is 6.2 . Pt with known hx of ETOH abuse, quit a week ago, cirrhosis EGD (04/16/16)-----> Esophageal varices with signs of recent bleeding, S/P banding times 4. 3 units of blood ordered - Coagulopathy. plt 61 secondary to cirrhosis - Liver cirrhosis- secondary to alcohol, on diuretics at home and lactulose - ETOH abuse, he quit a week ago - Hep-c (+), not candidate for tx - Recent fall with right hip fx s/p surgical repair, on Lovenox Plan: - NISHANT - EGD on Sunday - Obtain consents - PPI drip - Octreotide drip - Monitor hh - Transfuse as needed - alcohol cessation - Notify Gi for active bleeding - Patient seen and examined by dr. Mcginnis and myself and this note is written on his behalf. (Matt Jacobs) Physician Comments Patient seen and examined Agree with above Continue with current supportive care Monitor labs and transfuse as needed Plan for EGD on Sunday (Fletcher Mcginnis MD) Matt Jacobs Oct 07, 2016 14:51 Fletcher Mcginnis MD Oct 07, 2016 16:30
[2016-10-07] MEDS ORDERED: OCTREOTIDE INJ 500 MCG in SODIUM CHLORID 0.9% 500 ML INJ 500 ML IV ONE (16:00)
[2016-10-07] MEDS ORDERED: PANTOPRAZOLE INJ 80 MG in SODIUM CHLORIDE 0.9% INJ 100 ML IV SCH (16:00)
[2016-10-07] MEDS: MIDODRINE 5 MG TAB PO SCH (17:00)
--- NOTE | 2016-10-07 18:48 | MB ---
cc: ARIE PEGUERO MD DATE OF CONSULTATION: 10/07/2016 REASON FOR CONSULTATION Acute renal failure management. HISTORY OF PRESENT ILLNESS This is a 61-year-old male with a history of alcoholic cirrhosis. He is on hospice at this time. He also has a history of hypertension. The patient was admitted on October 04 after he had a fall at an [facility] in [place]. Here he was found to have a right hip fracture and underwent open reduction, internal fixation of the right hip. The patient has a history of heavy alcohol abuse. There was concern for initial withdrawals and he was given Ativan. He has been here in the hospital now for 4 days. The patient also presented with some hyponatremia with initial serum sodium of 123. He was started with normal saline and this improved to 127 and has remained stable. Also during this hospitalization the patient was found to have acute drop in hemoglobin with a hemoglobin that dropped from 9 to 6 yesterday. He does have a prior history of esophageal varices with banding during a previous hospitalization here and he was seen with GI service. 3 units of blood were ordered for transfusion today and the plan is to have an EGD performed on Sunday. Regarding his renal function the patient presented with a creatinine of 1.3 on admission here. His previous creatinine was 0.9 in May of this year. Through his hospitalization the patient has been continued on IV fluids and his creatinine has trended up to 1.8 then up to 2.6 and then up to 3.3 today. The patient does not have a Moss in place and had apparently 1 liter of urine output reported over the last 24 hours. A renal ultrasound was performed with no acute findings and had 9.4 and 10.6 centimeter kidneys noted. At this point the patient is resting in bed. He is reporting having generalized fatigue. However, he is feeling somewhat better since his admission here. He is receiving transfusion of blood at this time. Nephrology was consulted for further evaluation. REVIEW OF SYSTEMS The patient reports having decreased p.o. intake with nausea, no vomiting, no diarrhea. However, he had melena stools yesterday. No chest pains or shortness of breath at this time and no dizziness or loss of consciousness. The patient has had some ongoing confusion he reports over the last several days, otherwise review of systems negative. PAST MEDICAL HISTORY 1. Hypertension. 2. Cirrhosis. 3. COPD. 4. Alcohol abuse. 5. Multiple GI bleeds. 6. Hyponatremia. PAST SURGICAL HISTORY Includes left ankle repair, vasectomy. MEDICATIONS Medications at home include: 1. Morphine. 2. Ursodiol. 3. Thiamine. 4. Spironalactone. 5. Pantoprazole. 6. Neomycin. 7. Multivitamin. 8. Melatonin. 9. Milk of magnesia. 10. Ativan. 11. Lasix 20 mg b.i.d. 12. Lortab. 13. Fleet's enemas p.r.n. 14. Cardizem. 15. Dulcolax p.r.n. ALLERGIES NO KNOWN DRUG ALLERGIES. FAMILY HISTORY History of heart disease, AL and alcohol abuse. SOCIAL HISTORY The patient drinks actively prior to this admission with 1 pint of vodka a day. The patient lives in an [facility] in [place]. No drug use, occasional tobacco use. PHYSICAL EXAMINATION VITAL SIGNS: At the time of evaluation temperature 97.6, pulse 100, respiratory rate 18, blood pressure 100/54, pulse ox 97% on room air. GENERAL: Awake, alert, no apparent distress. HEENT: Neck soft, supple. CARDIAC: Regular rate and rhythm. PULMONARY: Lungs are clear to auscultation. Decreased breath sounds at bases. ABDOMEN: Soft, nontender, nondistended. EXTREMITIES: No edema. LABORATORY FINDINGS Sodium 127, potassium 4.2, chloride 94, bicarb 22.6, BUN 57, creatinine 3.3, glucose 111, calcium of 8.2, corrected phosphorus 1.9, magnesium 1.8, albumin 2.2, white count is 4.1, hemoglobin 6.2, hematocrit 18.6, hemoglobin/hematocrit were 9.4 and 26 yesterday, platelet count of 61. INR is 1.2. Urine osmolality was 436, no URA performed. IMAGING STUDIES Renal ultrasound with normal renal findings noted. ASSESSMENT/PLAN 1. Acute kidney injury. The patient had a creatinine of 0.9 in May of this year. He presented here on this admission with a creatinine of 1.3, this is steadily increased up to 2.6 yesterday and then increased up to 3.3 today. The patient has 1 liter of urine output over the last 24 hours. I suspect a multifactorial etiology for ALEX here. The patient has had recent hypotension with systolic blood pressure only in the 80s over the last several days. been receiving IV fluids here since his admission and is currently on normal saline at 125 cc/hour. I suspect this hypotension may have been due to acute finding of possible GI bleeding with findings of melena stools and drop in hemoglobin. This may have contributed to some hypoperfusion and acute renal injury. This is also in the setting of advanced cirrhosis with a known esophageal varices. There may be hepatorenal component here as well contributing to acute renal failure. I will go ahead and check a fractional excretion of sodium, if the urine sodium is very low, this would be more indicative of possible hepatorenal versus prerenal state. There is a chance there may be some occult ATN here as well. However, will further assess urine studies, eosinophils. Renal ultrasound was otherwise unremarkable. I will go ahead and order a Moss catheter as well and continue with IV fluids. Should there be little improvement in renal function over the next 24-48 hours may consider trial of diuretics. However, will check urine electrolytes first and continue with fluids at this point. The patient's volume status otherwise appears relatively stable and his weight is unchanged since his admission here with ongoing urine output. He has no signs of clinical volume overload otherwise. At this point continue with IV fluids, check urine studies. No indications for dialysis at this point. Patient would be a poor dialysis candidate given cirrhosis, and he is on hospice at this time. 2. Hip fracture. The patient had a fall with hip fracture. He is status post open reduction, internal fixation of hip fracture on October 05. Continue to follow. 3. Hyponatremia. The patient presented with a serum sodium of 123 and this admission. He has had chronically low serum sodium and this is likely due to ongoing cirrhosis with alcohol abuse and active alcohol intake. His serum sodium has increased up to 127 at this point. Continue to monitor at this time. If there is little improvement in renal function may consider a course of diuretics which may further help serum sodium levels. However, continue to monitor closely at this stage. Serum sodium is otherwise stable at this point. 4. Hypertension. The patient has a history of hypertension. He actually had hypotension with systolic blood pressures only in the 80s until earlier today. His systolic is improved to the 100s now. This may be secondary due to the patient's melena with possible GI bleed. GI has been consulted and the patient has been started on octreotide, and continue to monitor. Will also start midodrine as well with hypotension and goal for increased renal perfusion. 5. COPD. Continue to monitor. 6. Anemia and melena. The patient with melena stools and has previous history of upper GI bleed with esophageal variceal bleeding and previous banding in April of last year. The patient seen with GI and Octreotide was started. His hemoglobin had dropped from 9 to 6 today and 3 units of packed red blood cells have been ordered. He is otherwise hemodynamically stable at this point and the plan is for an EGD to be performed on Sunday. MD BREE CheungP/TLL /5:03 PM /6:07 PM MTDD
[2016-10-07 20:35] LABS: HEMATOCRIT 28.8 % (39.0-51.0); MEAN CELL VOLUME 89.5 FL (80.0-100.0); MEAN CORPUSCULAR HGB CONC 34.7 % (32.0-36.0); PLATELET COUNT 70 TH/MM3 (150-450); RED BLOOD COUNT 3.22 MIL/MM3 (4.50-5.90); RED CELL DISTRIBUTION WIDTH 17.1 % (11.6-17.2); WHITE BLOOD COUNT 5.2 TH/MM3 (4.0-11.0)
[2016-10-07 20:39] LABS: REVIEW FLAG FINAL
[2016-10-07 20:52] LABS: BLOOD, URINE NEG (NEG); COMMENT (UR) CULT NOT INDICATED; CULTURE IF INDICATED CULT NOT INDICATED; GLUCOSE,URINE NEG (NEG); KETONE, URINE NEG (NEG); MUCUS URINE FEW /lpf (OCC); NITRITE,URINE NEG (NEG); PH, URINE 5.5 (5.0-8.5); SQUAMOUS EPITHELIAL CELL URINE <1 /hpf (0-5); URINE COLOR YELLOW (YELLW/STRAW)
[2016-10-08] VITALS (11 sets, daily range): BP systolic 92–131; BP diastolic 62–76; PULSE 88–117; RESP 17–19; TEMP 96–98.3; O2SAT 93–96
[2016-10-08] MEDS: ENOXAPARIN SODIUM 30 MG/0.3 ML SYRINGE SQ SCH ×2 (01:44→13:04)
[2016-10-08] MEDS: MIDODRINE 5 MG TAB PO SCH ×3 (06:28→17:24)
[2016-10-08] MEDS: POTASSIUM PHOSPHATE/SODIUM PHOSPHATE 250 MG TAB PO SCH ×3 (06:28→21:08)
[2016-10-08] MEDS: ACETAMINOPHEN/HYDROcodone 325 MG/5 MG TAB PO PRN ×3 (06:29→21:08)
--- NOTE | 2016-10-08 07:49 | PD.ORT.PN ---
Subjective Subjective Remarks pt complaining of post op pain involving right hip patient denies abdominal pain, no SOB, no chest pain answered multiple questions from patient about EGD tomorrow Objective Vitals Vital Signs Date Time Temp Pulse Resp B/P Pulse Ox O2 Delivery O2 Flow Rate FiO2 10/08/16 04:20 97.5 101 19 108/62 93 10/08/16 00:00 97.6 112 17 111/72 95 10/07/16 22:15 21 10/07/16 20:45 96.9 98 17 116/69 95 10/07/16 19:26 101 10/07/16 17:17 145/80 10/07/16 16:40 97.7 102 16 122/70 96 10/07/16 16:00 97.0 102 18 113/67 98 10/07/16 15:25 97.5 102 16 113/67 95 10/07/16 12:58 97.6 100 18 100/54 97 10/07/16 11:15 97.3 101 16 100/59 95 10/07/16 10:55 97.5 104 16 92/53 95 Manual Cuff/Auscultation 10/07/16 08:00 97.3 105 19 106/50 98 I/O 10/07/16 10/07/16 10/07/16 10/08/16 10/08/16 10/08/16 07:00 15:00 23:00 07:00 15:00 23:00 Intake Total 1229 ml 480 ml 240 ml 1520 ml Output Total 300 ml 275 ml 325 ml Balance 929 ml 480 ml -35 ml 1195 ml Intake Oral 220 ml 480 ml 240 ml 240 ml IV Total 1009 ml 1280 ml Output Urine Total 300 ml 275 ml 325 ml # Voids 3 # Bowel Movements 1 1 1 1 Result Diagram: 10/07/16201510/07/16 0633 Objective Remarks seen by Dr. Ignacio Li RLE: nvi. dressing CDI. 2+ PT/DP. Assessment & Plan Assessment and Plan POD# 3- right hip IMN Hgb dropped to 6.0 yesterday, received 2 units and this morning hgb is 10. patient having EGD tomorrow spoke with Kierra, charge nurse, about asking medical if they still want patient on Lovenox with possible GI bleed hx of alcoholism, HEP C and cirrhosis but has not drank any alcohol in two weeks 50% wb RLE dressing changes qday starting today likely dc to inpatient rehab when stable Angelina Luis Oct 08, 2016 07:49
[2016-10-08 08:04] LABS: AUTOMATED NEUTROPHIL # 2.2 TH/MM3 (1.8-7.7); BASOPHIL % 0.4 % (0.0-2.0); EOSINOPHIL # 0.1 TH/MM3 (0-0.4); EOSINOPHIL % 2.8 % (0.0-4.0); HEMATOCRIT 25.7 % (39.0-51.0); LYMPH % 15.5 % (9.0-44.0); LYMPHOCYTE # 0.7 TH/MM3 (1.0-4.8); MEAN CELL VOLUME 90.3 FL (80.0-100.0); MEAN CORPUSCULAR HEMOGLOBIN 30.9 PG (27.0-34.0); MEAN CORPUSCULAR HGB CONC 34.2 % (32.0-36.0); MONO % 31.3 % (0.0-8.0); PLATELET COUNT 70 TH/MM3 (150-450); RED BLOOD COUNT 2.85 MIL/MM3 (4.50-5.90); RED CELL DISTRIBUTION WIDTH 17.3 % (11.6-17.2); WHITE BLOOD COUNT 4.4 TH/MM3 (4.0-11.0)
[2016-10-08 08:40] LABS: ALKALINE PHOSPHATASE 107 U/L (45-117); ALT (GPT) 18 U/L (12-78); ANION GAP 8 MEQ/L (5-15); AST (GOT) 66 U/L (15-37); BICARBONATE 20.7 MEQ/L (21.0-32.0); BLOOD UREA NITROGEN 43 MG/DL (7-18); CHLORIDE 101 MEQ/L (98-107); GLOMERULAR FILTRATION RATE 30 ML/MIN (>89); HEMO FLAGS AUTO DIFF; MAGNESIUM 1.6 MG/DL (1.5-2.5); POTASSIUM 3.9 MEQ/L (3.5-5.1); SODIUM (NA) 130 MEQ/L (136-145); TOTAL BILIRUBIN ADULT 1.6 MG/DL (0.2-1.0)
[2016-10-08] MEDS: DOCUSATE SODIUM 100 MG CAP PO SCH ×2 (08:42→21:00)
[2016-10-08] MEDS: chlordiazePOXIDE 25 MG CAP PO SCH ×3 (08:42→17:24)
[2016-10-08] MEDS: FOLIC ACID 1 MG TAB PO SCH (08:42)
[2016-10-08] MEDS: THIAMINE HCL 100 MG TAB PO SCH (08:42)
[2016-10-08] MEDS: MULTIVITAMINS/MINERALS THERAPEUTIC TAB PO SCH ×3 (08:42→21:08)
[2016-10-08] MEDS: SODIUM CHLOR 0.9% 1000 ML INJ 1,000 ML IV SCH ×3 (08:50→22:45)
[2016-10-08] MEDS: SODIUM CHLORIDE 0.9% FLUSH 5 ML FLUSH IVF SCH ×2 (09:00→21:08)
[2016-10-08 12:33] LABS: BANDS 21 % (0-6); BASOPHILS 1 % (0-2); CORRECTED NUCLEATED RBC 2 /100 WBC (0-0); EOSINOPHILS 3 % (0-4); METAMYELOCYTES 1 % (0-1); NEUTROPHIL # MANUAL DIFF 3.1 TH/MM3 (1.8-7.7); POLYS (SEG NEUTROPHILS) 48 % (16-70); WBC DIFF SAMPLE 100
[2016-10-08 12:34] LABS: PLATELET ESTIMATE SMEAR LOW (NORMAL); PLATELET MORPHOLOGY NORMAL (NORMAL); SCAN/DIFF FINAL DIFF MANUAL; TOXIC GRANULATION 2+ (NORMAL)
[2016-10-08] MEDS ORDERED: SODIUM CHLOR 0.9% 1000 ML INJ 1,000 ML IV ONE (13:45)
--- NOTE | 2016-10-08 13:49 | HHI.PR ---
Subjective Remarks Bp Low earlier As per RN bp now better with sbp >110 denies abdominal pain/nausea and vomiting denies cp/sob Objective Vitals Vital Signs Date Time Temp Pulse Resp B/P Pulse Ox O2 Delivery O2 Flow Rate FiO2 10/08/16 13:16 93 10/08/16 08:10 104 10/08/16 08:00 97.7 104 19 92/65 93 10/08/16 07:29 18 10/08/16 04:20 97.5 101 19 108/62 93 10/08/16 00:00 97.6 112 17 111/72 95 10/07/16 22:15 21 10/07/16 20:45 96.9 98 17 116/69 95 10/07/16 19:26 101 10/07/16 17:17 145/80 10/07/16 16:40 97.7 102 16 122/70 96 10/07/16 16:00 97.0 102 18 113/67 98 10/07/16 15:25 97.5 102 16 113/67 95 I/O 10/07/16 10/07/16 10/07/16 10/08/16 10/08/16 10/08/16 07:00 15:00 23:00 07:00 15:00 23:00 Intake Total 1229 ml 480 ml 240 ml 1520 ml Output Total 300 ml 275 ml 325 ml Balance 929 ml 480 ml -35 ml 1195 ml Intake Oral 220 ml 480 ml 240 ml 240 ml IV Total 1009 ml 1280 ml Output Urine Total 300 ml 275 ml 325 ml # Voids 3 # Bowel Movements 1 1 1 1 Result Diagram: 10/08/16 0730 10/08/16 0730 Imaging Last Impressions Renal Ultrasound 10/05/16 0000 Signed Impressions: Service Date/Time: October 09:47 - CONCLUSION: Normal renal sonogram. Joe Castro MD Femur X-Ray 10/05/16 0000 Signed Impressions: Service Date/Time: October 13:56 - CONCLUSION: Spot intraoperative images demonstrating intramedullary gloria and hip screw in place. Hiram Roman MD Chest X-Ray 10/04/16 1610 Signed Impressions: Service Date/Time: Tuesday, October 04, 2016 16:29 - CONCLUSION: No acute disease. Basilio Matute MD [facility] Hip and Pelvis X-Ray 10/04/16 1604 Signed Impressions: Service Date/Time: Tuesday, October 04, 2016 16:29 - CONCLUSION: Intertrochanteric fracture right hip. Basilio Matute MD [facility] Head CT 10/04/16 0000 Signed Impressions: Service Date/Time: Tuesday, October 04, 2016 16:43 - CONCLUSION: 1. No acute findings. Mild cortical volume loss. Jack Barnhart MD Objective Remarks GENERAL: Well-developed male patient in NAD, drowsy. SKIN: Warm and dry. HEAD: Atraumatic. Normocephalic. EYES: Pupils equal and round. No scleral icterus. No injection or drainage. ENT: No nasal bleeding or discharge. Mucous membranes pink and moist. NECK: Trachea midline. CARDIOVASCULAR: Tachycardic, regular rhythm. No murmur. RESPIRATORY: No accessory muscle use. Clear to auscultation. Breath sounds equal bilaterally. GASTROINTESTINAL: Abdomen soft, non-tender, nondistended. Hepatic and splenic margins not palpable. MUSCULOSKELETAL: Extremities without clubbing, cyanosis, or edema. RLE shortened with external rotation. 2+ bilateral pedal pulses. NEUROLOGICAL: Awake and alert. No obvious cranial nerve deficits. Motor grossly within normal limits. Normal speech. PSYCHIATRIC: Appropriate mood and affect; insight and judgment normal. Medications and IVs Current Medications Medications (Trade) Dose Ordered Sig/F[place]anda Route Start Time Stop Time Status Last Admin (Zofran Inj) 4 mg Q6H PRN IVP 10/04/16 21:00 (Narcan Inj) 0.4 mg UNSCH PRN IV 10/04/16 21:00 (Morphine Inj) 2 mg Q3H PRN IV PUSH 10/04/16 22:45 10/05/16 09:50 (Vitamin B1) 100 mg DAILY PO 10/05/16 09:00 10/08/16 08:42 (Librium) 25 mg TID PO 10/05/16 09:00 10/08/16 13:03 (Ativan Inj) 1 mg Q2H PRN IV PUSH 10/04/16 22:45 10/05/16 03:50 (Folate) 1 mg DAILY PO 10/05/16 09:30 10/08/16 08:42 (Theragran M Tab) 1 tab DAILY PO 10/06/16 09:00 10/11/16 08:59 10/08/16 08:42 (Romazicon Inj) 0.2 mg Q1M PRN IV PUSH 10/05/16 09:30 (Ativan) 1 mg Q4H PRN PO 10/05/16 09:30 (Ativan Inj) 1 mg Q4H PRN IV PUSH 10/05/16 09:30 (Ativan) 2 mg Q2H PRN PO 10/05/16 09:30 (Ativan Inj) 2 mg Q2H PRN IV PUSH 10/05/16 09:30 (Ativan Inj) 2 mg Q1H PRN IV PUSH 10/05/16 09:30 (Ativan Inj) 2 mg Q15M PRN IV PUSH 10/05/16 09:30 (NS Flush) 2 ml UNSCH PRN IVF 10/05/16 13:45 (NS Flush) 2 ml BID IVF 10/05/16 21:00 10/07/16 10:20 (Lovenox Inj) 30 mg Q12H SQ 10/06/16 02:15 Hold 10/08/16 13:04 (Morphine Inj) 5 mg Q3H PRN IV PUSH 10/05/16 13:45 ([place] 5-325 Mg) 1 tab Q4H PRN PO 10/05/16 13:45 10/08/16 13:03 ([place] 5-325 Mg) 2 tab Q4H PRN PO 10/05/16 13:45 10/08/16 06:29 (Phenergan) 25 mg Q4H PRN PO 10/05/16 13:45 (Theragran M Tab) 1 tab BID PO 10/06/16 21:00 12/05/16 20:59 10/07/16 21:30 (Colace) 100 mg BID PO 10/06/16 21:00 10/08/16 08:42 Zolpidem Tartrate 5 mg 5 mg HS PRN PO 10/05/16 13:45 (NS 1000 ml Inj) 1,000 ml @ 125 mls/hr Q8H IV 10/06/16 22:45 10/08/16 08:50 Potassium Phos/ Sodium Phos 250 mg 250 mg Q8HR PO 10/07/16 14:00 10/08/16 13:03 (Protonix Inj/NS Inj) 100 ml @ 10 mls/hr CONTINUOUS IV 10/07/16 16:00 10/07/16 17:16 Midodrine 5 mg 5 mg TID@,, PO 10/07/16 17:00 10/08/16 11:34 (NS 1000 ml Inj) 1,000 ml @ 999 mls/hr BOLUS ONCE IV 10/08/16 13:45 10/08/16 14:45 UNV Urinary Catheter: No Vascular Central Line Catheter: No A/P Problem List: (1) Hip fracture, right ICD Code: S72.001A Status: Acute (2) Hyponatremia ICD Code: E87.1 Status: Acute (3) ALEX (acute kidney injury) ICD Code: N17.9 Status: Acute (4) Alcohol withdrawal ICD Code: F10.239 Status: Chronic (5) Liver cirrhosis ICD Code: K74.60 Status: Chronic (6) COPD (chronic obstructive pulmonary disease) ICD Code: J44.9 Status: Chronic (7) Hypotension ICD Code: I95.9 Status: Acute (8) Posthemorrhagic anemia ICD Code: D50.0 Status: Acute (9) GI bleed ICD Code: K92.2 Status: Acute Assessment and Plan (1) Hip fracture, right Plan: X-ray showed right intertrochanteric fracture. Orthopedics was reconsulted. Continue think control as per orthopedic surgery. Patient status post ORIF with intramedullary gloria fixation. Continue physical therapy, patient will need PT at rehabilitation. (2) Hyponatremia Plan: Na 123, previously 125 in . Likely hypervolemia hyponatremia related to alcohol abuse. Initially treated with normal saline at 125 mL per hour. Sodium initially improved, now stable at 127. (3) ALEX (acute kidney injury) Plan: Creatinine trending up. Today 2.67. Continue IV fluids, will consider nephrology consultation if keeps worsening. Activity and monitor BUN/creatinine, history of stenosis and avoid nephrotoxins. Patient's creatinine previously 0.6 in May 2016. 2/5 threatening trending down, patient with good urine output. Continue to monitor BUN/creatinine. Likely acute kidney injury due to hemodynamic instability secondary to GI bleed which is now being apparent. (4) Alcohol withdrawal Plan: Continue CIWA protocol, recent TAB. Seizure precautions. Multivitamin, folate and thiamine daily. (5) Liver cirrhosis Plan: Patient on hospice. Further hepatotoxins. (6) COPD (chronic obstructive pulmonary disease) Plan: Stable. Continue DuoNeb's when necessary. (7) Hypotension Plan: Patient with intermitent episodes of hypotension - improved with IV fluids. Likely due to GI bleed since patient's hemoglobin dropped and patient c/ o dark stools. 10/08 patient's blood pressure low this morning, however as per RN report the last blood pressure is in the 110s systolic. The patient has been started on Midodrine as per nephrology. Continue. If patient becomes hypotensive then it is okay to give IV normal saline bolus. (8) Posthemorrhagic anemia Plan: Patient with dropp in hemoglobin from 9 to 6.2. 10/08 as post infusion of the units of 2 units of packed blood cells and 10/07. GI consulted. Patient for colonoscopy on Sunday. Patient has history of alcohol abuse and but esophageal varices. Monitor H/H post - transfusion and transfuse as needed for hemoglobin goal > 9. (9) GI bleed Plan: Likely upper Gi bleed. consult GI - will likely need EGD. Transfuse as above. DVT Prophylaxis: teds/SCDs to nonoperative leg. Avoid chemical prophylaxis for now with upcoming surgery. Discharge Planning Continue to monitor the medical floor. DC pending clinical improvement of creatinine, hypotension, orthopedic surgery clearance. Problem Qualifiers (1) Hip fracture, right: Qualified Code: S72.001A - Hip fracture, right, closed, initial encounter (2) Liver cirrhosis: Qualified Code: K70.30 - Alcoholic cirrhosis of liver without ascites (3) Hypotension: Qualified Code: I95.9 - Hypotension, unspecified hypotension type (4) GI bleed: Doug Gama MD Oct 08, 2016 13:49
--- NOTE | 2016-10-08 14:17 | HHI.NPPN ---
Subjective Additional Remarks Feels tired today Objective Data Data 10/07/16 10/08/16 19:00 07:00 Intake Total 480 ml 1760 ml Output Total 600 ml Balance 480 ml 1160 ml Intake Oral 480 ml 480 ml IV Total 1280 ml Output Urine Total 600 ml # Voids 3 # Bowel Movements 1 2 Vital Signs Date Time Temp Pulse Resp B/P Pulse Ox O2 Delivery O2 Flow Rate FiO2 10/08/16 13:16 93 10/08/16 08:10 104 10/08/16 08:00 97.7 104 19 92/65 93 10/08/16 07:29 18 10/08/16 04:20 97.5 101 19 108/62 93 10/08/16 00:00 97.6 112 17 111/72 95 10/07/16 22:15 21 10/07/16 20:45 96.9 98 17 116/69 95 10/07/16 19:26 101 10/07/16 17:17 145/80 10/07/16 16:40 97.7 102 16 122/70 96 10/07/16 16:00 97.0 102 18 113/67 98 10/07/16 15:25 97.5 102 16 113/67 95 -: 10/08/16 0730 10/08/16 0730 Physical Exam General Appearance: No Acute Distress Throat Throat Exam: Oral Mucosa [place] & Moist Neck Neck Exam: Neck Supple Pulmonary Resp Exam: Decreased Bases Cardiology CV Exam: Regular, Normal Sinus Rhythm Gastrointestinal/Abdomen GI Exam: Soft, Non-Tender, Non-Distended Integumentary Skin Exam: Dry, Intact Extremeties Extremities Exam: No Edema Neurologic Neuro Exam: Alert, Awake, Oriented Assessment/Plan Problem List: (1) ALEX (acute kidney injury) Plan: The patient had a creatinine of 0.9 in May of this year. He presented here on this admission with a creatinine of 1.3, this is steadily increased up to 3.3 yesterday, then improved to 2.2 today. ALEX due to recent hypotension (SBP 80s) and GI bleed. This is also in the setting of advanced cirrhosis with a known esophageal varices. There may be hepatorenal component here as well contributing to acute renal failure. Renal ultrasound was otherwise unremarkable. Continue Moss catheter and IVFs for now - creatinine improving today and plan for further transfusion today. On NS at 125cc/hour. (2) Liver cirrhosis Plan: Etoh cirrhosis - on hospice. Actively drinking prior to admission. On octreotide and midodrine History of esophageal varices, follow with GI. (3) GI bleed Plan: The patient with melena stools and has previous history of upper GI bleed with esophageal variceal bleeding and previous banding in April of last year. Hemoglobin dropped again post 3u PRBCs yesterday. Plan for 1u PRBCs today, follow with GI for EGD (4) Fall Plan: s/p ORIF, follow with orthopaedics (5) Hip fracture, right Plan: 2. Hip fracture. The patient had a fall with hip fracture. He is status post open reduction, internal fixation of hip fracture on October 05. Continue to follow. (6) Hyponatremia Plan: History of hypnotramia and etoh abuse. Na 123 on admission - may have contributed to fall. Sodium improved to 130 now, on IVFs. Continue to monitor. Problem Qualifiers (1) Liver cirrhosis: Qualified Code: K70.30 - Alcoholic cirrhosis of liver without ascites (2) GI bleed: (3) Fall: Qualified Code: W19.XXXA - Fall, initial encounter (4) Hip fracture, right: Qualified Code: S72.001A - Hip fracture, right, closed, initial encounter Octaviano Gonsalves MD Oct 08, 2016 14:17
[2016-10-08] MEDS: PANTOPRAZOLE INJ 80 MG in SODIUM CHLORIDE 0.9% INJ 100 ML IV SCH (15:19)
--- NOTE | 2016-10-08 16:51 | HHI.GIFU ---
Subjective Remarks Comfortable in bed no pain no bleeding Objective Vitals I&O Vital Signs Date Time Temp Pulse Resp B/P Pulse Ox O2 Delivery O2 Flow Rate FiO2 10/08/16 14:03 18 10/08/16 13:16 93 10/08/16 12:00 96.0 100 19 114/68 94 10/08/16 08:10 104 10/08/16 08:00 97.7 104 19 92/65 93 10/08/16 07:29 18 10/08/16 04:20 97.5 101 19 108/62 93 10/08/16 00:00 97.6 112 17 111/72 95 10/07/16 22:15 21 10/07/16 20:45 96.9 98 17 116/69 95 10/07/16 19:26 101 10/07/16 17:17 145/80 I/O 10/07/16 10/07/16 10/07/16 10/08/16 10/08/16 10/08/16 07:00 15:00 23:00 07:00 15:00 23:00 Intake Total 1229 ml 480 ml 240 ml 1520 ml Output Total 300 ml 275 ml 325 ml Balance 929 ml 480 ml -35 ml 1195 ml Intake Oral 220 ml 480 ml 240 ml 240 ml IV Total 1009 ml 1280 ml Output Urine Total 300 ml 275 ml 325 ml # Voids 3 # Bowel Movements 1 1 1 1 Laboratory Laboratory Tests Test 10/07/16 10/07/16 10/08/16 10/08/16 20:05 20:16 07:30 15:30 Urine Color YELLOW Urine Turbidity HAZY Urine pH 5.5 Urine Specific [place] 1.013 Urine Protein TRACE Urine Glucose (UA) NEG Urine Ketones NEG Urine Occult Blood NEG Urine Nitrite NEG Urine Bilirubin NEG Urine Urobilinogen LESS THAN 2.0 Urine Leukocyte Esterase NEG Urine RBC 2 Urine WBC 5 Urine Squamous Epithelial <1 Cells Urine Bacteria Urine Mucus FEW Urine Yeast (Budding) Microscopic Urinalysis Comment CULT NOT INDICATED Urine Eosinophils NONE SEEN Urine Random Creatinine 114.0 Urine Random Sodium 17 White Blood Count 5.2 4.4 Red Blood Count 3.22 2.85 Hemoglobin 10.0 8.8 8.5 Hematocrit 28.8 25.7 Mean Corpuscular Volume 89.5 90.3 Mean Corpuscular Hemoglobin 31.0 30.9 Mean Corpuscular Hemoglobin 34.7 34.2 Concent Red Cell Distribution Width 17.1 17.3 Platelet Count 70 70 Mean Platelet Volume 7.1 6.7 Neutrophils (%) (Auto) 50.0 Lymphocytes (%) (Auto) 15.5 Monocytes (%) (Auto) 31.3 Eosinophils (%) (Auto) 2.8 Basophils (%) (Auto) 0.4 Neutrophils # (Auto) 2.2 Lymphocytes # (Auto) 0.7 Monocytes # (Auto) 1.4 Eosinophils # (Auto) 0.1 Basophils # (Auto) 0.0 CBC Comment AUTO DIFF Differential Total Cells 100 Counted Neutrophils % (Manual) 48 Band Neutrophils % 21 Lymphocytes % 12 Monocytes % 14 Eosinophils % 3 Basophils % 1 Neutrophils # (Manual) 3.1 Metamyelocytes 1 Nucleated Red Blood Cells 2 Differential Comment FINAL DIFF MANUAL Toxic Granulation 2+ Platelet Estimate LOW Platelet Morphology Comment NORMAL Sodium Level 130 Potassium Level 3.9 Chloride Level 101 Carbon Dioxide Level 20.7 Anion Gap 8 Blood Urea Nitrogen 43 Creatinine 2.27 Estimat Glomerular Filtration 30 Rate Random Glucose 92 Calcium Level 7.9 Phosphorus Level 2.6 Magnesium Level 1.6 Total Bilirubin 1.6 Aspartate Amino Transf 66 (AST/SGOT) Alanine Aminotransferase 18 (ALT/SGPT) Alkaline Phosphatase 107 Total Protein 5.1 Albumin 2.0 Complement C3 75 Complement C4 12 Physical Exam NECK: Neck is supple CHEST: Chest is clear to auscultation and percussion. CARDIAC: Regular rate and rhythm with no murmur gallop or rubs. ABDOMEN: Soft, nondistended, nontender; no hepatosplenomegaly; bowel sounds are present in all four quadrants. EXTREMITIES: No clubbing, cyanosis, or edema. SKIN: Normal; no rash; no jaundice. CENTRIFUGAL SCREEN TENDER: No focal deficits; alert and oriented times three. Assessment and Plan Plan - Upper GI Bleed/melena, history of varices. hgb on admission 10, today hgb is 6.2 . Pt with known hx of ETOH abuse, quit a week ago, cirrhosis EGD (04/16/16)-----> Esophageal varices with signs of recent bleeding, S/P banding times 4. 3 units of blood ordered - Coagulopathy. plt 61 secondary to cirrhosis - Liver cirrhosis- secondary to alcohol, on diuretics at home and lactulose - ETOH abuse, he quit a week ago - Hep-c (+), not candidate for tx - Recent fall with right hip fx s/p surgical repair, on Lovenox Plan: - NISHANT - EGD tomorrow - Obtain consents - PPI drip - Octreotide drip - Monitor hh - Transfuse as needed - alcohol cessation - Notify Gi for active bleeding Fletcher Mcginnis MD Oct 08, 2016 16:51
[2016-10-09] VITALS (8 sets, daily range): BP systolic 92–108; BP diastolic 54–68; PULSE 76–113; RESP 16–19; TEMP 96.8–98.5; O2SAT 94–98
[2016-10-09] MEDS: MIDODRINE 5 MG TAB PO SCH ×3 (05:04→17:50)
[2016-10-09] MEDS: POTASSIUM PHOSPHATE/SODIUM PHOSPHATE 250 MG TAB PO SCH ×3 (05:04→20:22)
[2016-10-09] MEDS: PANTOPRAZOLE INJ 80 MG in SODIUM CHLORIDE 0.9% INJ 100 ML IV SCH ×3 (05:04→20:22)
[2016-10-09 06:03] LABS: BICARBONATE 18.2 MEQ/L (21.0-32.0)
[2016-10-09 06:28] LABS: CALCIUM-PROTEIN CORRECTED 8.8 MG/DL (8.5-10.1)
[2016-10-09 07:18] LABS: HEMATOCRIT 24.2 % (39.0-51.0); MEAN CELL VOLUME 94.3 FL (80.0-100.0); MEAN CORPUSCULAR HEMOGLOBIN 31.5 PG (27.0-34.0); MEAN CORPUSCULAR HGB CONC 33.4 % (32.0-36.0); PLATELET COUNT 76 TH/MM3 (150-450); RED BLOOD COUNT 2.57 MIL/MM3 (4.50-5.90); RED CELL DISTRIBUTION WIDTH 17.8 % (11.6-17.2); WHITE BLOOD COUNT 4.8 TH/MM3 (4.0-11.0)
[2016-10-09 07:32] LABS: REVIEW FLAG FINAL
[2016-10-09] MEDS: DOCUSATE SODIUM 100 MG CAP PO SCH ×2 (08:28→20:22)
[2016-10-09] MEDS: THIAMINE HCL 100 MG TAB PO SCH (08:29)
[2016-10-09] MEDS: chlordiazePOXIDE 25 MG CAP PO SCH ×3 (08:29→17:50)
[2016-10-09] MEDS: MULTIVITAMINS/MINERALS THERAPEUTIC TAB PO SCH ×3 (08:29→20:22)
[2016-10-09] MEDS: FOLIC ACID 1 MG TAB PO SCH (08:29)
[2016-10-09] MEDS: SODIUM CHLORIDE 0.9% FLUSH 5 ML FLUSH IVF SCH ×2 (09:00→20:22)
[2016-10-09] MEDS: SODIUM CHLOR 0.9% 1000 ML INJ 1,000 ML IV SCH ×3 (09:55→20:23)
[2016-10-09] MEDS ORDERED: FOLI1TAB4 PO (10:45)
--- NOTE | 2016-10-09 10:49 | HHI.DS ---
Discharge Summary Admission Date Oct 04, 2016 at 21:04 Discharge Date: Oct 09, 2016 Admitting Diagnosis R hip fracture; hyponatremia (1) Hip fracture, right ICD Code: S72.001A Diagnosis: Principal (2) Hyponatremia ICD Code: E87.1 Diagnosis: Principal (3) ALEX (acute kidney injury) ICD Code: N17.9 Diagnosis: Principal (4) Alcohol withdrawal ICD Code: F10.239 Diagnosis: Secondary (5) Liver cirrhosis ICD Code: K74.60 Diagnosis: Secondary (6) COPD (chronic obstructive pulmonary disease) ICD Code: J44.9 Diagnosis: Secondary (7) Hypotension ICD Code: I95.9 Diagnosis: Secondary (8) Posthemorrhagic anemia ICD Code: D50.0 Diagnosis: Secondary (9) GI bleed ICD Code: K92.2 Diagnosis: Secondary Procedures EGD Brief History - From Admission History taken from Patient and ED physician. 61 y/o male on hospice with a history of HTN, copd, ETOH abuse and cirrhosis was sent from the Hospice care center after falling on the floor. Patient states he lives in an [facility] in [place], and when he walking to the bathroom he slipped. He states he did not slip on any water, or hit his head. He states he was unsteady on his feet. His last drink was 4 days ago, and he drinks a pint a day. At the [facility] an x ray was done and showed a right hip fracture. Hospice was then he called and he was transferred to the care center. He is complaining of right hip pain. Denies any chest pain, sob, fever or chills. Upon arrival he was found to have a Na of 123 and did vomit twice per the RN. He states this happens when he withdrawals. He denies any chest pain, sob, fever or chills. CBC/BMP: 10/09/16 0427 10/09/16 0427 Significant Findings Laboratory Tests Test 10/07/16 10/07/16 10/07/16 10/08/16 06:33 20:05 20:16 07:30 Red Blood Count 1.94 MIL/MM3 3.22 MIL/MM3 2.85 MIL/MM3 (4.50-5.90) (4.50-5.90) (4.50-5.90) Hemoglobin 6.2 GM/DL 10.0 GM/DL 8.8 GM/DL (13.0-17.0) (13.0-17.0) (13.0-17.0) Hematocrit 18.6 % 28.8 % 25.7 % (39.0-51.0) (39.0-51.0) (39.0-51.0) Platelet Count 61 TH/MM3 70 TH/MM3 70 TH/MM3 (150-450) (150-450) (150-450) Monocytes (%) (Auto) 25.8 % 31.3 % (0.0-8.0) (0.0-8.0) Lymphocytes # (Auto) 0.6 TH/MM3 0.7 TH/MM3 (1.0-4.8) (1.0-4.8) Monocytes # (Auto) 1.1 TH/MM3 1.4 TH/MM3 (0-0.9) (0-0.9) Band Neutrophils % 10 % (0-6) 21 % (0-6) Monocytes % 14 % (0-8) 14 % (0-8) Platelet Estimate LOW (NORMAL) LOW (NORMAL) Rouleau PRESENT (NORMAL) Sodium Level 127 MEQ/L 130 MEQ/L (136-145) (136-145) Chloride Level 94 MEQ/L (98-107) Blood Urea Nitrogen 57 MG/DL (7-18) 43 MG/DL (7-18) Creatinine 3.33 MG/DL 2.27 MG/DL (0.60-1.30) (0.60-1.30) Estimat Glomerular Filtration 19 ML/MIN (>89) 30 ML/MIN (>89) Rate Random Glucose 111 MG/DL (74-106) Calcium Level 7.2 MG/DL 7.9 MG/DL (8.5-10.1) (8.5-10.1) Protein Corrected Calcium 8.2 MG/DL (8.5-10.1) Phosphorus Level 1.9 MG/DL (2.5-4.9) Total Bilirubin 1.3 MG/DL 1.6 MG/DL (0.2-1.0) (0.2-1.0) Aspartate Amino Transf 72 U/L (15-37) 66 U/L (15-37) (AST/SGOT) Total Protein 5.3 GM/DL 5.1 GM/DL (6.4-8.2) (6.4-8.2) Albumin 2.2 GM/DL 2.0 GM/DL (3.4-5.0) (3.4-5.0) Urine Turbidity HAZY (CLEAR) Urine Mucus FEW /lpf (OCC) Red Cell Distribution Width 17.3 % (11.6-17.2) Mean Platelet Volume 6.7 FL (7.0-11.0) Nucleated Red Blood Cells 2 /100 WBC (0-0) Toxic Granulation 2+ (NORMAL) Carbon Dioxide Level 20.7 MEQ/L (21.0-32.0) Complement C3 75 MG/DL (90-180) Test 10/08/16 10/08/16 10/09/16 15:30 22:43 04:27 Hemoglobin 8.5 GM/DL 8.7 GM/DL 8.1 GM/DL (13.0-17.0) (13.0-17.0) (13.0-17.0) Red Blood Count 2.57 MIL/MM3 (4.50-5.90) Hematocrit 24.2 % (39.0-51.0) Red Cell Distribution Width 17.8 % (11.6-17.2) Platelet Count 76 TH/MM3 (150-450) Sodium Level 135 MEQ/L (136-145) Carbon Dioxide Level 18.2 MEQ/L (21.0-32.0) Blood Urea Nitrogen 33 MG/DL (7-18) Creatinine 1.73 MG/DL (0.60-1.30) Estimat Glomerular Filtration 40 ML/MIN (>89) Rate Calcium Level 7.4 MG/DL (8.5-10.1) Total Protein 4.7 GM/DL (6.4-8.2) Imaging Last Impressions Renal Ultrasound 10/05/16 Signed Impressions: Service Date/Time: October 09:47 - CONCLUSION: Normal renal sonogram. Joe Castro MD Femur X-Ray 10/05/16 0000 Signed Impressions: Service Date/Time: October 13:56 - CONCLUSION: Spot intraoperative images demonstrating intramedullary gloria and hip screw in place. Hiram Roman MD Chest X-Ray 10/04/16 1610 Signed Impressions: Service Date/Time: Tuesday, October 04, 2016 16:29 - CONCLUSION: No acute disease. Basilio Matute MD FACR Hip and Pelvis X-Ray 10/04/16 1604 Signed Impressions: Service Date/Time: Tuesday, October 04, 2016 16:29 - CONCLUSION: Intertrochanteric fracture right hip. Basilio Matute MD FACR Head CT 10/04/16 0000 Signed Impressions: Service Date/Time: Tuesday, October 04, 2016 16:43 - CONCLUSION: 1. No acute findings. Mild cortical volume loss. Jack Barnhart MD PE at Discharge GENERAL: Well-developed male patient in NAD, drowsy. SKIN: Warm and dry. HEAD: Atraumatic. Normocephalic. EYES: Pupils equal and round. No scleral icterus. No injection or drainage. ENT: No nasal bleeding or discharge. Mucous membranes pink and moist. NECK: Trachea midline. CARDIOVASCULAR: Tachycardic, regular rhythm. No murmur. RESPIRATORY: No accessory muscle use. Clear to auscultation. Breath sounds equal bilaterally. GASTROINTESTINAL: Abdomen soft, non-tender, nondistended. Hepatic and splenic margins not palpable. MUSCULOSKELETAL: Extremities without clubbing, cyanosis, or edema. RLE shortened with external rotation. 2+ bilateral pedal pulses. NEUROLOGICAL: Awake and alert. No obvious cranial nerve deficits. Motor grossly within normal limits. Normal speech. PSYCHIATRIC: Appropriate mood and affect; insight and judgment normal. Hospital Course (1) Hip fracture, right Plan: X-ray showed right intertrochanteric fracture. Orthopedics was reconsulted. Continue pain control as per orthopedic surgery. Patient status post ORIF with intramedullary gloria fixation. Continue physical therapy, patient will need PT at rehabilitation. (2) Hyponatremia Plan: Na 123, previously 125 in . Likely hypervolemia hyponatremia related to alcohol abuse. Initially treated with normal saline at 125 mL per hour. Sodium initially improved, now stable at 127. (3) ALEX (acute kidney injury) Plan: Creatinine trending up. worsening on 10/08 2.67. Improving. Monitor kidney function. Continue IV fluids, nephrology consultation, apreciate recommendations. Kidney US rev and normal. Activity and monitor BUN/creatinine, history of stenosis and avoid nephrotoxins. Patient's creatinine previously 0.6 in May 2016. Cr 2/ threatening trending down, patient with good urine output. Continue to monitor BUN/creatinine. Likely acute kidney injury due to hemodynamic instability secondary to GI bleed which is now being apparent. Nephrology consult (4) Alcohol withdrawal Plan: Continue CIWA protocol, recent TAB. Seizure precautions. Multivitamin, folate and thiamine daily. (5) Liver cirrhosis Plan: Patient on hospice. Further hepatotoxins. (6) COPD (chronic obstructive pulmonary disease) Plan: Stable. Continue DuoNeb's when necessary. (7) Hypotension Plan: Patient with intermitent episodes of hypotension - improved with IV fluids. Likely due to GI bleed since patient's hemoglobin dropped and patient c/ o dark stools. 10/08 patient's blood pressure low this morning, however as per RN report the last blood pressure is in the 110s systolic. The patient has been started on Midodrine as per nephrology. Continue. If patient becomes hypotensive then it is okay to give IV normal saline bolus. (8) Posthemorrhagic anemia Plan: Patient with dropp in hemoglobin from 9 to 6.2. 10/08 as post infusion of the units of 2 units of packed blood cells and /. GI consulted. Patient had EGD on Sunday. Patient has history of alcohol abuse and but esophageal varices. Monitor H/H post - transfusion and transfuse as needed for hemoglobin goal > 9. (9) GI bleed Plan: Likely upper Gi bleed. consult GI - plan for EGD 09/08/16. EGD Show small esophageal versus distal esophagus. Portal hypertensive gastropathy in the gastric fundus. Continue PPI avoid NSAIDs, no alcohol. Cleared by GI doctor for discharge to follow up 2 weeks after discharge. Plan to repeat EGD in 6 months per GI. Transfuse as above. DVT Prophylaxis: teds/SCDs to nonoperative leg. Avoid chemical prophylaxis for now with upcoming surgery. Improved. Discharged to snf in fairly stable condition to follow up as OP with PCP and consultants. Pt Condition on Discharge: Stable Discharge Disposition: Discharge to SNF Discharge Time: > 30 minutes Discharge Instructions DIET: Follow Instructions for: Heart Healthy Diet Activities you can perform: Weight Bearing as Freddy Follow up Referrals: Gastroenterology - 2 Weeks Orthopedics - 2 Weeks with Ishan Richards Jr., MD PCP Follow-up - 3-5 Days Pulmonology - 1 Week with Ronn Ford MD SNF/[facility] New Medications: Hydrocodone-Acetaminophen (Lebeau) 5-325 mg Tab 1 TAB PO Q4H PRN PAIN #60 Ref 0 TAB Pantoprazole (Pantoprazole) 40 Mg Tab 40 MG PO DAILY Reflux #30 Ref 0 TAB Folic Acid (Folate) 1 Mg Tab 1 MG PO DAILY mvt #30 TAB Continued Medications: Acamprosate DR (Acamprosate DR) 333 Mg Tab 333 MG PO BID ALCOHOLIC CIRRHOSIS #90 Ref 0 TAB Bisacodyl Supp (Dulcolax Supp) 10 Mg Supp 10 MG RECTAL DAILY PRN IF NO BM FROM MOM #12 Ref 0 SUPP Chlordiazepoxide (Chlordiazepoxide) 25 Mg Cap 25 MG PO Q4HR PRN ALCOHOL WD Ref 0 CAP Diltiazem (Cardizem) 30 Mg Tab 30 MG PO TID HTN #120 Ref 0 TAB Furosemide (Lasix) 20 Mg Tab 20 MG PO BID HTN #60 Ref 0 TAB Lactulose Liq (Constulose Liq) 10 Gm/15 Ml Soln 30 GM PO DAILY ALCOHOL CIRRHOSIS Lorazepam (Ativan) 1 Mg Tab 1.5 MG PO Q4HR PRN ANX/DT ETOH WD Ref 0 TAB Magnesium Hydroxide Liq (Milk of Magnesia Liq) 400 Mg/5 Ml Susp 30 ML PO DAILY PRN IF NO BM WITHIN 3 DAYS #1 Ref 0 BOTTLE Melatonin (Melatonin) 3 Mg Tab 6 MG PO HS Insomnia Multiple Vitamins W/ Minerals (Thera-M) 1 Tab 1 TAB PO DAILY Nutritional Supplement Ref 0 TAB Neomycin (Neomycin) 500 Mg Tab 1000 MG PO BID ALCOHOL CIRRHOSIS Ref 0 TAB Pantoprazole (Pantoprazole) 40 Mg Tab 40 MG PO BID GERD #30 Ref 0 TAB Sodium Phosphates Rectal (Fleet Enema Rectal) 7-19 Gm/118 Ml Enem 118 ML RECTAL DAILY PRN IF NO BM FROM SUPP Ref 0 BOTTLE Spironolactone (Spironolactone) 50 Mg Tab 50 MG PO BID HTN #60 Ref 0 TAB Thiamine (Thiamine) 100 Mg Tab 100 MG PO DAILY Nutritional Supplement Ref 0 TAB Ursodiol (Ursodiol) 300 Mg Cap 300 MG PO BID ALCOHOL CIRRHOSIS #60 Ref 0 CAP Discontinued Medications: Hydrocodone-Acetaminophen (Lortab) 5-325 Mg Tab 1 TAB PO Q4H PRN PAIN Ref 0 TAB Morphine Liq (Morphine Liq) 20 Mg/Ml Liq 5-10 MG PO Q2HR PRN pain or shortness of breath #15 Ref 0 ML Caroline Velásquez MD Oct 09, 2016 10:49
[2016-10-09] MEDS ORDERED: PANT40TA3 PO (10:54)
[2016-10-09] MEDS ORDERED: PROPOFOL 200 MG/20 ML AMP IV ONE (15:50)
--- NOTE | 2016-10-09 18:38 | HHI.PR ---
Subjective Remarks Feels sleepy and tired. Seen after EGD today. Says he has no pain at this time. Pain si controlled by meds. Denies n/v/d/c. Did not eat yet. No fever or chills. Objective Vitals Vital Signs Date Time Temp Pulse Resp B/P Pulse Ox O2 Delivery O2 Flow Rate FiO2 10/09/16 17:00 111 10/09/16 16:00 96.8 89 16 104/63 98 10/09/16 13:04 93 18 99/62 96 10/09/16 12:59 97 18 98/64 93 10/09/16 12:54 97.9 95 18 100/60 97 10/09/16 12:00 97.3 113 17 92/58 96 10/09/16 08:00 98.0 95 16 101/54 95 10/09/16 04:25 98.3 100 19 104/64 95 10/09/16 00:30 98.5 92 18 102/62 94 10/08/16 20:40 98.3 94 17 131/75 96 10/08/16 19:46 88 I/O 10/08/16 10/08/16 10/08/16 10/09/16 10/09/16 10/09/16 07:00 15:00 23:00 07:00 15:00 23:00 Intake Total 1520 ml 480 ml 2164 ml 930 ml 605 ml Output Total 325 ml 425 ml 425 ml 350 ml 525 ml Balance 1195 ml 55 ml 1739 ml 580 ml 80 ml Intake Oral 240 ml 480 ml 240 ml 0 ml 480 ml IV Total 1280 ml 1924 ml 930 ml 125 ml Output Urine Total 325 ml 425 ml 425 ml 350 ml 525 ml # Bowel Movements 1 3 0 Result Diagram: 10/09/16 0427 10/09/16 0427 Imaging Last Impressions Renal Ultrasound 10/05/16 0000 Signed Impressions: Service Date/Time: October 09:47 - CONCLUSION: Normal renal sonogram. Joe Castro MD Femur X-Ray 10/05/16 0000 Signed Impressions: Service Date/Time: October 13:56 - CONCLUSION: Spot intraoperative images demonstrating intramedullary gloria and hip screw in place. Hiram Roman MD Chest X-Ray 10/04/16 1610 Signed Impressions: Service Date/Time: Tuesday, October 04, 2016 16:29 - CONCLUSION: No acute disease. Basilio Matute MD FACR Hip and Pelvis X-Ray 10/04/16 1604 Signed Impressions: Service Date/Time: Tuesday, October 04, 2016 16:29 - CONCLUSION: Intertrochanteric fracture right hip. Basilio Matute MD FACR Head CT 10/04/16 0000 Signed Impressions: Service Date/Time: Tuesday, October 04, 2016 16:43 - CONCLUSION: 1. No acute findings. Mild cortical volume loss. Jack Barnhart MD Objective Remarks GENERAL: Well-developed male patient in NAD, drowsy. SKIN: Warm and dry. HEAD: Atraumatic. Normocephalic. EYES: Pupils equal and round. No scleral icterus. No injection or drainage. ENT: No nasal bleeding or discharge. Mucous membranes pink and moist. NECK: Trachea midline. CARDIOVASCULAR: Tachycardic, regular rhythm. No murmur. RESPIRATORY: No accessory muscle use. Clear to auscultation. Breath sounds equal bilaterally. GASTROINTESTINAL: Abdomen soft, non-tender, nondistended. Hepatic and splenic margins not palpable. MUSCULOSKELETAL: Extremities without clubbing, cyanosis, or edema. RLE shortened with external rotation. 2+ bilateral pedal pulses. NEUROLOGICAL: Awake and alert. No obvious cranial nerve deficits. Motor grossly within normal limits. Normal speech. PSYCHIATRIC: Appropriate mood and affect; insight and judgment normal. A/P Problem List: (1) Hip fracture, right ICD Code: S72.001A Status: Acute (2) Hyponatremia ICD Code: E87.1 Status: Acute (3) ALEX (acute kidney injury) ICD Code: N17.9 Status: Acute (4) Alcohol withdrawal ICD Code: F10.239 Status: Chronic (5) Liver cirrhosis ICD Code: K74.60 Status: Chronic (6) COPD (chronic obstructive pulmonary disease) ICD Code: J44.9 Status: Chronic (7) Hypotension ICD Code: I95.9 Status: Acute (8) Posthemorrhagic anemia ICD Code: D50.0 Status: Acute (9) GI bleed ICD Code: K92.2 Status: Acute Assessment and Plan (1) Hip fracture, right Plan: X-ray showed right intertrochanteric fracture. Orthopedics was reconsulted. Continue think control as per orthopedic surgery. Patient status post ORIF with intramedullary gloria fixation. Continue physical therapy, patient will need PT at rehabilitation. (2) Hyponatremia Plan: Na 123, previously 125 in . Likely hypervolemia hyponatremia related to alcohol abuse. Initially treated with normal saline at 125 mL per hour. Sodium initially improved, now stable at 127. (3) ALEX (acute kidney injury) Plan: Creatinine trending up. worsening on 10/08 2.67. Improving. Monitor kidney function. Continue IV fluids, nephrology consultation, apreciate recommendations. Kidney US rev and normal. Activity and monitor BUN/creatinine, history of stenosis and avoid nephrotoxins. Patient's creatinine previously 0.6 in May 2016. Cr 2/ threatening trending down, patient with good urine output. Continue to monitor BUN/creatinine. Likely acute kidney injury due to hemodynamic instability secondary to GI bleed which is now being apparent. Nephrology consult (4) Alcohol withdrawal Plan: Continue CIWA protocol, recent TAB. Seizure precautions. Multivitamin, folate and thiamine daily. (5) Liver cirrhosis Plan: Patient on hospice. Further hepatotoxins. (6) COPD (chronic obstructive pulmonary disease) Plan: Stable. Continue DuoNeb's when necessary. (7) Hypotension Plan: Patient with intermitent episodes of hypotension - improved with IV fluids. Likely due to GI bleed since patient's hemoglobin dropped and patient c/ o dark stools. 10/08 patient's blood pressure low this morning, however as per RN report the last blood pressure is in the 110s systolic. The patient has been started on Midodrine as per nephrology. Continue. If patient becomes hypotensive then it is okay to give IV normal saline bolus. (8) Posthemorrhagic anemia Plan: Patient with dropp in hemoglobin from 9 to 6.2. 10/08 as post infusion of the units of 2 units of packed blood cells and /. GI consulted. Patient for colonoscopy on Sunday. Patient has history of alcohol abuse and but esophageal varices. Monitor H/H post - transfusion and transfuse as needed for hemoglobin goal > 9. (9) GI bleed Plan: Likely upper Gi bleed. consult GI - plan for EGD 09/08/16. Transfuse as above. DVT Prophylaxis: teds/SCDs to nonoperative leg. Avoid chemical prophylaxis for now with upcoming surgery. Discharge Planning Continue to monitor the medical floor. DC pending clinical improvement of creatinine, hypotension, orthopedic surgery clearance. s/p EGD today Problem Qualifiers (1) Hip fracture, right: Qualified Code: S72.001A - Hip fracture, right, closed, initial encounter (2) Liver cirrhosis: Qualified Code: K70.30 - Alcoholic cirrhosis of liver without ascites (3) Hypotension: Qualified Code: I95.9 - Hypotension, unspecified hypotension type (4) GI bleed: Caroline Velásquez MD Oct 09, 2016 18:38
--- NOTE | 2016-10-09 18:57 | HHI.NPPN ---
Subjective History of Present Illness 61-year-old male with a history of alcoholic cirrhosis. He is on hospice at this time. He also has a history of hypertension. The patient was admitted on October 04 after he had a fall at an [facility] in [place]. Here he was found to have a right hip fracture and underwent open reduction, internal fixation of the right hip. The patient has a history of heavy alcohol abuse. Develop hyponatremia with initial serum sodium of 123. Additional Remarks Patient is alert, not in distress. Objective Data Data 10/08/16 10/09/16 19:00 07:00 Intake Total 1944 ml 1630 ml Output Total 425 ml 775 ml Balance 1519 ml 855 ml Intake Oral 480 ml 240 ml IV Total 1464 ml 1390 ml Output Urine Total 425 ml 775 ml # Bowel Movements 3 0 Vital Signs Date Time Temp Pulse Resp B/P Pulse Ox O2 Delivery O2 Flow Rate FiO2 10/09/16 17:00 111 10/09/16 16:00 96.8 89 16 104/63 98 10/09/16 13:04 93 18 99/62 96 10/09/16 12:59 97 18 98/64 93 10/09/16 12:54 97.9 95 18 100/60 97 10/09/16 12:00 97.3 113 17 92/58 96 10/09/16 08:00 98.0 95 16 101/54 95 10/09/16 04:25 98.3 100 19 104/64 95 10/09/16 00:30 98.5 92 18 102/62 94 10/08/16 20:40 98.3 94 17 131/75 96 10/08/16 19:46 88 -: 10/09/16 0427 10/09/16 0427 Physical Exam General Appearance: No Acute Distress, Comfortable Eyes Eye Exam: Pupils Equal Throat Throat Exam: Oral Mucosa [place] & Moist Neck Neck Exam: Neck Supple Pulmonary Resp Exam: Decreased Bases Cardiology CV Exam: Regular, Normal Sinus Rhythm Gastrointestinal/Abdomen GI Exam: Soft, Non-Tender, Bowel Sounds Present, Non-Distended Integumentary Skin Exam: Dry, Intact Extremeties Extremities Exam: No Edema Neurologic Neuro Exam: Alert, Awake, Oriented Assessment/Plan Problem List: (1) ALEX (acute kidney injury) Plan: The patient had a creatinine of 0.9 in May of this year. He presented here on this admission with a creatinine of 1.3, this is steadily increased up to 3.3 yesterday, then improved to 2.2 today. ALEX due to recent hypotension (SBP 80s) and GI bleed. This is also in the setting of advanced cirrhosis with a known esophageal varices. There may be hepatorenal component here as well contributing to acute renal failure. Renal ultrasound was otherwise unremarkable. Creatinine continue to improve. Na. is stable. Continue IVF,avoid Nephrotoxins. (2) Liver cirrhosis Plan: Etoh cirrhosis - on hospice. Actively drinking prior to admission. On octreotide and midodrine History of esophageal varices, follow with GI. (3) GI bleed Plan: The patient with melena stools and has previous history of upper GI bleed with esophageal variceal bleeding and previous banding in April of last year. Hemoglobin dropped again post 3u PRBCs yesterday. Plan for 1u PRBCs today, follow with GI for EGD (4) Fall Plan: s/p ORIF, follow with orthopaedics (5) Hip fracture, right Plan: 2. Hip fracture. The patient had a fall with hip fracture. He is status post open reduction, internal fixation of hip fracture on October 05. Continue to follow. (6) Hyponatremia Plan: History of hypnotramia and etoh abuse. Na 123 on admission - may have contributed to fall. Sodium improved to 130 now, on IVFs. Continue to monitor. Problem Qualifiers (1) Liver cirrhosis: Qualified Code: K70.30 - Alcoholic cirrhosis of liver without ascites (2) GI bleed: (3) Fall: Qualified Code: W19.XXXA - Fall, initial encounter (4) Hip fracture, right: Qualified Code: S72.001A - Hip fracture, right, closed, initial encounter Julio Barker MD Oct 09, 2016 18:57
[2016-10-09] MEDS: ACETAMINOPHEN/HYDROcodone 325 MG/5 MG TAB PO PRN (20:21)
[2016-10-10] VITALS (8 sets, daily range): BP systolic 92–120; BP diastolic 59–66; PULSE 61–98; RESP 16–18; TEMP 95.5–97.8; O2SAT 92–99
[2016-10-10 05:12] LABS: AUTOMATED NEUTROPHIL # 2.6 TH/MM3 (1.8-7.7); BASOPHIL % 0.5 % (0.0-2.0); EOSINOPHIL # 0.1 TH/MM3 (0-0.4); EOSINOPHIL % 1.7 % (0.0-4.0); HEMATOCRIT 23.6 % (39.0-51.0); LYMPH % 18.4 % (9.0-44.0); LYMPHOCYTE # 1.1 TH/MM3 (1.0-4.8); MEAN CELL VOLUME 91.1 FL (80.0-100.0); MEAN CORPUSCULAR HEMOGLOBIN 30.8 PG (27.0-34.0); MEAN CORPUSCULAR HGB CONC 33.8 % (32.0-36.0); MONO % 33.7 % (0.0-8.0); NEUT % 45.7 % (16.0-70.0); PLATELET COUNT 96 TH/MM3 (150-450); RED BLOOD COUNT 2.59 MIL/MM3 (4.50-5.90); RED CELL DISTRIBUTION WIDTH 17.5 % (11.6-17.2); WHITE BLOOD COUNT 5.7 TH/MM3 (4.0-11.0)
[2016-10-10 05:17] LABS: HEMO FLAGS AUTO DIFF
[2016-10-10] MEDS: POTASSIUM PHOSPHATE/SODIUM PHOSPHATE 250 MG TAB PO SCH ×3 (05:30→22:23)
[2016-10-10] MEDS: MIDODRINE 5 MG TAB PO SCH ×3 (05:30→17:26)
[2016-10-10] MEDS: PANTOPRAZOLE INJ 80 MG in SODIUM CHLORIDE 0.9% INJ 100 ML IV SCH ×2 (05:30→17:25)
[2016-10-10] MEDS: ACETAMINOPHEN/HYDROcodone 325 MG/5 MG TAB PO PRN ×3 (05:32→17:25)
[2016-10-10 05:53] LABS: BICARBONATE 18.8 MEQ/L (21.0-32.0); POTASSIUM 3.5 MEQ/L (3.5-5.1)
[2016-10-10 06:07] LABS: CALCIUM-PROTEIN CORRECTED 8.5 MG/DL (8.5-10.1)
[2016-10-10 06:56] LABS: PLATELET ESTIMATE SMEAR LOW (NORMAL); PLATELET MORPHOLOGY NORMAL (NORMAL); SCAN/DIFF AUTO DIFF CONFIRMED
[2016-10-10] MEDS: chlordiazePOXIDE 25 MG CAP PO SCH ×3 (08:43→17:25)
[2016-10-10] MEDS: MULTIVITAMINS/MINERALS THERAPEUTIC TAB PO SCH ×3 (08:43→22:24)
[2016-10-10] MEDS: DOCUSATE SODIUM 100 MG CAP PO SCH ×2 (08:43→21:00)
[2016-10-10] MEDS: FOLIC ACID 1 MG TAB PO SCH (08:43)
[2016-10-10] MEDS: THIAMINE HCL 100 MG TAB PO SCH (08:43)
[2016-10-10] MEDS: SODIUM CHLORIDE 0.9% FLUSH 5 ML FLUSH IVF SCH ×2 (08:44→21:00)
--- NOTE | 2016-10-10 08:46 | HHI.PR ---
Subjective Remarks Feels tired today. Since he is able to eat. No nausea or vomiting. Bowel. No fever or chills. Normal pain. Objective Vitals Vital Signs Date Time Temp Pulse Resp B/P Pulse Ox O2 Delivery O2 Flow Rate FiO2 10/10/16 05:00 96.4 90 18 96/60 97 10/10/16 00:00 97.6 84 18 96/59 96 10/09/16 20:19 76 10/09/16 20:00 97.8 94 18 108/68 97 10/09/16 17:00 111 10/09/16 16:00 96.8 89 16 104/63 98 10/09/16 13:04 93 18 99/62 96 10/09/16 12:59 97 18 98/64 93 10/09/16 12:54 97.9 95 18 100/60 97 10/09/16 12:00 97.3 113 17 92/58 96 I/O 10/09/16 10/09/16 10/09/16 10/10/16 10/10/16 10/10/16 07:00 15:00 23:00 07:00 15:00 23:00 Intake Total 930 ml 605 ml 525 ml 1313 ml Output Total 350 ml 525 ml 450 ml 425 ml Balance 580 ml 80 ml 75 ml 888 ml Intake Oral 0 ml 480 ml 240 ml 120 ml IV Total 930 ml 125 ml 285 ml 1193 ml Output Urine Total 350 ml 525 ml 450 ml 425 ml # Bowel Movements 0 1 Result Diagram: 10/10/16 0425 10/10/16 0425 Imaging Last Impressions Renal Ultrasound 10/05/16 0000 Signed Impressions: Service Date/Time: October 09:47 - CONCLUSION: Normal renal sonogram. Joe Castro MD Femur X-Ray 10/05/16 0000 Signed Impressions: Service Date/Time: October 13:56 - CONCLUSION: Spot intraoperative images demonstrating intramedullary gloria and hip screw in place. Hiram Roman MD Chest X-Ray 10/04/16 1610 Signed Impressions: Service Date/Time: Tuesday, October 04, 2016 16:29 - CONCLUSION: No acute disease. Basilio Matute MD FACR Hip and Pelvis X-Ray 10/04/16 1604 Signed Impressions: Service Date/Time: Tuesday, October 04, 2016 16:29 - CONCLUSION: Intertrochanteric fracture right hip. Basilio Matute MD FACR Head CT 10/04/16 0000 Signed Impressions: Service Date/Time: Tuesday, October 04, 2016 16:43 - CONCLUSION: 1. No acute findings. Mild cortical volume loss. Jack Barnhart MD Objective Remarks GENERAL: Well-developed male patient in NAD, drowsy. SKIN: Warm and dry. HEAD: Atraumatic. Normocephalic. EYES: Pupils equal and round. No scleral icterus. No injection or drainage. ENT: No nasal bleeding or discharge. Mucous membranes pink and moist. NECK: Trachea midline. CARDIOVASCULAR: Tachycardic, regular rhythm. No murmur. RESPIRATORY: No accessory muscle use. Clear to auscultation. Breath sounds equal bilaterally. GASTROINTESTINAL: Abdomen soft, non-tender, nondistended. Hepatic and splenic margins not palpable. MUSCULOSKELETAL: Extremities without clubbing, cyanosis, or edema. RLE shortened with external rotation. 2+ bilateral pedal pulses. NEUROLOGICAL: Awake and alert. No obvious cranial nerve deficits. Motor grossly within normal limits. Normal speech. PSYCHIATRIC: Appropriate mood and affect; insight and judgment normal. A/P Problem List: (1) Hip fracture, right ICD Code: S72.001A Status: Acute (2) Hyponatremia ICD Code: E87.1 Status: Acute (3) ALEX (acute kidney injury) ICD Code: N17.9 Status: Acute (4) Alcohol withdrawal ICD Code: F10.239 Status: Chronic (5) Liver cirrhosis ICD Code: K74.60 Status: Chronic (6) COPD (chronic obstructive pulmonary disease) ICD Code: J44.9 Status: Chronic (7) Hypotension ICD Code: I95.9 Status: Acute (8) Posthemorrhagic anemia ICD Code: D50.0 Status: Acute (9) GI bleed ICD Code: K92.2 Status: Acute Assessment and Plan (1) Hip fracture, right Plan: X-ray showed right intertrochanteric fracture. Orthopedics was reconsulted. Continue pain control as per orthopedic surgery. Patient status post ORIF with intramedullary gloria fixation. Continue physical therapy, patient will need PT at rehabilitation. (2) Hyponatremia Plan: Na 123, previously 125 in . Likely hypervolemia hyponatremia related to alcohol abuse. Initially treated with normal saline at 125 mL per hour. Sodium initially improved, now stable at 127. (3) ALEX (acute kidney injury) Plan: Creatinine trending up. worsening on 10/08 2.67. Improving. Monitor kidney function. Continue IV fluids, nephrology consultation, apreciate recommendations. Kidney US rev and normal. Activity and monitor BUN/creatinine, history of stenosis and avoid nephrotoxins. Patient's creatinine previously 0.6 in May 2016. Cr 2/ threatening trending down, patient with good urine output. Continue to monitor BUN/creatinine. Likely acute kidney injury due to hemodynamic instability secondary to GI bleed which is now being apparent. Nephrology consult (4) Alcohol withdrawal Plan: Continue CIWA protocol, recent TAB. Seizure precautions. Multivitamin, folate and thiamine daily. (5) Liver cirrhosis Plan: Patient on hospice. Further hepatotoxins. (6) COPD (chronic obstructive pulmonary disease) Plan: Stable. Continue DuoNeb's when necessary. (7) Hypotension Plan: Patient with intermitent episodes of hypotension - improved with IV fluids. Likely due to GI bleed since patient's hemoglobin dropped and patient c/ o dark stools. 10/08 patient's blood pressure low this morning, however as per RN report the last blood pressure is in the 110s systolic. The patient has been started on Midodrine as per nephrology. Continue. If patient becomes hypotensive then it is okay to give IV normal saline bolus. (8) Posthemorrhagic anemia Plan: Patient with dropp in hemoglobin from 9 to 6.2. 10/08 as post infusion of the units of 2 units of packed blood cells and /. GI consulted. Patient had EGD on Sunday. Patient has history of alcohol abuse and but esophageal varices. Monitor H/H post - transfusion and transfuse as needed for hemoglobin goal > 9. (9) GI bleed Plan: Likely upper Gi bleed. consult GI - plan for EGD 09/08/16. EGD Show small esophageal versus distal esophagus. Portal hypertensive gastropathy in the gastric fundus. Continue PPI avoid NSAIDs, no alcohol. Cleared by GI doctor for discharge to follow up 2 weeks after discharge. Plan to repeat EGD in 6 months per GI. Transfuse as above. DVT Prophylaxis: teds/SCDs to nonoperative leg. Avoid chemical prophylaxis for now with upcoming surgery. Discharge Planning Pending clearance by nephro Problem Qualifiers (1) Hip fracture, right: Qualified Code: S72.001A - Hip fracture, right, closed, initial encounter (2) Liver cirrhosis: Qualified Code: K70.30 - Alcoholic cirrhosis of liver without ascites (3) Hypotension: Qualified Code: I95.9 - Hypotension, unspecified hypotension type (4) GI bleed: Caroline Velásquez MD Oct 10, 2016 08:45
[2016-10-10] MEDS: SODIUM CHLOR 0.9% 1000 ML INJ 1,000 ML IV SCH (14:45)
--- NOTE | 2016-10-10 21:10 | HHI.NPPN ---
Subjective History of Present Illness 61-year-old male with a history of alcoholic cirrhosis. He is on hospice at this time. He also has a history of hypertension. The patient was admitted on October 04 after he had a fall at an [facility] in [place]. Here he was found to have a right hip fracture and underwent open reduction, internal fixation of the right hip. The patient has a history of heavy alcohol abuse. Develop hyponatremia with initial serum sodium of 123. Additional Remarks Patient is alert, not in distress, clinically same. Objective Data Data 10/09/16 10/10/16 19:00 07:00 Intake Total 605 ml 1838 ml Output Total 525 ml 875 ml Balance 80 ml 963 ml Intake Oral 480 ml 360 ml IV Total 125 ml 1478 ml Output Urine Total 525 ml 875 ml # Bowel Movements 1 Vital Signs Date Time Temp Pulse Resp B/P Pulse Ox O2 Delivery O2 Flow Rate FiO2 10/10/16 20:17 97.8 88 18 97/64 99 10/10/16 16:00 95.6 86 16 92/63 97 10/10/16 14:46 95.5 96 16 120/65 95 10/10/16 12:00 97.3 61 16 99/59 97 10/10/16 10:18 96.8 98 16 109/66 92 10/10/16 05:00 96.4 90 18 96/60 97 10/10/16 00:00 97.6 84 18 96/59 96 -: 10/10/16 0425 10/10/16 0425 Physical Exam General Appearance: No Acute Distress, Comfortable Eyes Eye Exam: Pupils Equal Throat Throat Exam: Oral Mucosa [place] & Moist Neck Neck Exam: Neck Supple Pulmonary Resp Exam: Decreased Bases Cardiology CV Exam: Regular, Normal Sinus Rhythm Gastrointestinal/Abdomen GI Exam: Soft, Non-Tender, Bowel Sounds Present, Non-Distended Integumentary Skin Exam: Dry, Intact Extremeties Extremities Exam: No Edema Neurologic Neuro Exam: Alert, Awake, Oriented Assessment/Plan Problem List: (1) ALEX (acute kidney injury) Plan: The patient had a creatinine of 0.9 in May of this year. He presented here on this admission with a creatinine of 1.3, this is steadily increased up to 3.3 yesterday, then improved to 2.2 today. ALEX due to recent hypotension (SBP 80s) and GI bleed. This is also in the setting of advanced cirrhosis with a known esophageal varices. There may be hepatorenal component here as well contributing to acute renal failure. Renal ultrasound was otherwise unremarkable. Creatinine continue to improve. Encourage oral fluids. (2) Liver cirrhosis Plan: Etoh cirrhosis - on hospice. Actively drinking prior to admission. On octreotide and midodrine History of esophageal varices, follow with GI. (3) GI bleed Plan: The patient with melena stools and has previous history of upper GI bleed with esophageal variceal bleeding and previous banding in April of last year. Hemoglobin dropped again post 3u PRBCs yesterday. Plan for 1u PRBCs today, follow with GI for EGD (4) Fall Plan: s/p ORIF, follow with orthopaedics (5) Hip fracture, right Plan: 2. Hip fracture. The patient had a fall with hip fracture. He is status post open reduction, internal fixation of hip fracture on October 05. Continue to follow. (6) Hyponatremia Plan: History of hypnotramia and etoh abuse. Na 123 on admission - may have contributed to fall. Sodium improved to 130 now, on IVFs. Continue to monitor. Problem Qualifiers (1) Liver cirrhosis: Qualified Code: K70.30 - Alcoholic cirrhosis of liver without ascites (2) GI bleed: (3) Fall: Qualified Code: W19.XXXA - Fall, initial encounter (4) Hip fracture, right: Qualified Code: S72.001A - Hip fracture, right, closed, initial encounter Julio Barker MD Oct 10, 2016 21:10 Julio Barker MD Oct 10, 2016 21:10
[2016-10-11 00:28] VITALS: BP 110/68; PULSE 90; RESP 18; TEMP 98.2; O2SAT 97
[2016-10-11] MEDS: PANTOPRAZOLE INJ 80 MG in SODIUM CHLORIDE 0.9% INJ 100 ML IV SCH (03:54)
[2016-10-11] MEDS: SODIUM CHLOR 0.9% 1000 ML INJ 1,000 ML IV SCH ×2 (03:55→06:20)
[2016-10-11 04:39] VITALS: BP 102/62; PULSE 87; RESP 18; TEMP 97; O2SAT 96
[2016-10-11] MEDS: POTASSIUM PHOSPHATE/SODIUM PHOSPHATE 250 MG TAB PO SCH (06:15)
[2016-10-11] MEDS: MIDODRINE 5 MG TAB PO SCH (06:15)
[2016-10-11 08:00] VITALS: BP 100/64; PULSE 90; RESP 18; TEMP 97.1; O2SAT 96
[2016-10-11 08:22] LABS: AUTOMATED NEUTROPHIL # 3.3 TH/MM3 (1.8-7.7); BASOPHIL % 0.4 % (0.0-2.0); EOSINOPHIL # 0.1 TH/MM3 (0-0.4); EOSINOPHIL % 1.4 % (0.0-4.0); HEMATOCRIT 26.3 % (39.0-51.0); HEMO FLAGS DIFF FINAL; LYMPH % 14.8 % (9.0-44.0); LYMPHOCYTE # 0.9 TH/MM3 (1.0-4.8); MEAN CELL VOLUME 91.3 FL (80.0-100.0); NEUT % 52.4 % (16.0-70.0); PLATELET COUNT 118 TH/MM3 (150-450); RED BLOOD COUNT 2.89 MIL/MM3 (4.50-5.90); RED CELL DISTRIBUTION WIDTH 18.2 % (11.6-17.2); WHITE BLOOD COUNT 6.3 TH/MM3 (4.0-11.0)
[2016-10-11 08:59] LABS: BICARBONATE 19.3 MEQ/L (21.0-32.0); POTASSIUM 3.8 MEQ/L (3.5-5.1)
[2016-10-11] MEDS: DOCUSATE SODIUM 100 MG CAP PO SCH (09:00)
--- NOTE | 2016-10-11 09:30 | HHI.PR ---
Subjective Remarks Says he feels much better today. Has decreased appetite but is able to eat. No n /v/d/c. No fevers or chills. Objective Vitals Vital Signs Date Time Temp Pulse Resp B/P Pulse Ox O2 Delivery O2 Flow Rate FiO2 10/11/16 04:39 97.0 87 18 102/62 96 10/11/16 00:28 98.2 90 18 110/68 97 10/10/16 20:17 97.8 88 18 97/64 99 10/10/16 20:00 84 10/10/16 16:00 95.6 86 16 92/63 97 10/10/16 14:46 95.5 96 16 120/65 95 10/10/16 12:00 97.3 61 16 99/59 97 10/10/16 10:18 96.8 98 16 109/66 92 I/O 10/10/16 10/10/16 10/10/16 10/11/16 10/11/16 10/11/16 07:00 15:00 23:00 07:00 15:00 23:00 Intake Total 1313 ml 1268 ml 600 ml 1663 ml Output Total 425 ml 800 ml 500 ml Balance 888 ml 1268 ml -200 ml 1163 ml Intake Oral 120 ml 600 ml 480 ml IV Total 1193 ml 1268 ml 1183 ml Output Urine Total 425 ml 800 ml 500 ml # Bowel Movements 1 0 0 Result Diagram: 10/11/16 0800 10/11/16 0800 Imaging Last Impressions Renal Ultrasound 10/05/16 0000 Signed Impressions: Service Date/Time: October 09:47 - CONCLUSION: Normal renal sonogram. Joe Castro MD Femur X-Ray 10/05/16 0000 Signed Impressions: Service Date/Time: October 13:56 - CONCLUSION: Spot intraoperative images demonstrating intramedullary gloria and hip screw in place. Hiram Roman MD Chest X-Ray 10/04/16 1610 Signed Impressions: Service Date/Time: Tuesday, October 04, 2016 16:29 - CONCLUSION: No acute disease. Basilio Matute MD FACR Hip and Pelvis X-Ray 10/04/16 1604 Signed Impressions: Service Date/Time: Tuesday, October 04, 2016 16:29 - CONCLUSION: Intertrochanteric fracture right hip. Basilio Matute MD FACR Head CT 10/04/16 0000 Signed Impressions: Service Date/Time: Tuesday, October 04, 2016 16:43 - CONCLUSION: 1. No acute findings. Mild cortical volume loss. Jack Barnhart MD Objective Remarks GENERAL: Well-developed male patient in NAD, drowsy. SKIN: Warm and dry. HEAD: Atraumatic. Normocephalic. EYES: Pupils equal and round. No scleral icterus. No injection or drainage. ENT: No nasal bleeding or discharge. Mucous membranes pink and moist. NECK: Trachea midline. CARDIOVASCULAR: Tachycardic, regular rhythm. No murmur. RESPIRATORY: No accessory muscle use. Clear to auscultation. Breath sounds equal bilaterally. GASTROINTESTINAL: Abdomen soft, non-tender, nondistended. Hepatic and splenic margins not palpable. MUSCULOSKELETAL: Extremities without clubbing, cyanosis, or edema. RLE shortened with external rotation. 2+ bilateral pedal pulses. NEUROLOGICAL: Awake and alert. No obvious cranial nerve deficits. Motor grossly within normal limits. Normal speech. PSYCHIATRIC: Appropriate mood and affect; insight and judgment normal. A/P Problem List: (1) Hip fracture, right ICD Code: S72.001A Status: Acute (2) Hyponatremia ICD Code: E87.1 Status: Acute (3) ALEX (acute kidney injury) ICD Code: N17.9 Status: Acute (4) Alcohol withdrawal ICD Code: F10.239 Status: Chronic (5) Liver cirrhosis ICD Code: K74.60 Status: Chronic (6) COPD (chronic obstructive pulmonary disease) ICD Code: J44.9 Status: Chronic (7) Hypotension ICD Code: I95.9 Status: Acute (8) Posthemorrhagic anemia ICD Code: D50.0 Status: Acute (9) GI bleed ICD Code: K92.2 Status: Acute Assessment and Plan (1) Hip fracture, right Plan: X-ray showed right intertrochanteric fracture. Orthopedics was reconsulted. Continue pain control as per orthopedic surgery. Patient status post ORIF with intramedullary gloria fixation. Continue physical therapy, patient will need PT at rehabilitation. (2) Hyponatremia Plan: Na 123, previously 125 in . Likely hypervolemia hyponatremia related to alcohol abuse. Initially treated with normal saline at 125 mL per hour. Sodium initially improved, now stable at 127. (3) ALEX (acute kidney injury) Plan: Creatinine trending up. worsening on 10/08 2.67. Improving. Monitor kidney function. Continue IV fluids, nephrology consultation, apreciate recommendations. Kidney US rev and normal. Activity and monitor BUN/creatinine, history of stenosis and avoid nephrotoxins. Patient's creatinine previously 0.6 in May 2016. Cr / threatening trending down, patient with good urine output. Continue to monitor BUN/creatinine. Likely acute kidney injury due to hemodynamic instability secondary to GI bleed which is now being apparent. Nephrology consult (4) Alcohol withdrawal Plan: Continue CIWA protocol, recent TAB. Seizure precautions. Multivitamin, folate and thiamine daily. (5) Liver cirrhosis Plan: Patient on hospice. Further hepatotoxins. (6) COPD (chronic obstructive pulmonary disease) Plan: Stable. Continue DuoNeb's when necessary. (7) Hypotension Plan: Patient with intermitent episodes of hypotension - improved with IV fluids. Likely due to GI bleed since patient's hemoglobin dropped and patient c/ o dark stools. 10/08 patient's blood pressure low this morning, however as per RN report the last blood pressure is in the 110s systolic. The patient has been started on Midodrine as per nephrology. Continue. If patient becomes hypotensive then it is okay to give IV normal saline bolus. (8) Posthemorrhagic anemia Plan: Patient with dropp in hemoglobin from 9 to 6.2. 10/08 as post infusion of the units of 2 units of packed blood cells and /. GI consulted. Patient had EGD on Sunday. Patient has history of alcohol abuse and but esophageal varices. Monitor H/H post - transfusion and transfuse as needed for hemoglobin goal > 9. (9) GI bleed Plan: Likely upper Gi bleed. consult GI - plan for EGD 09/08/16. EGD Show small esophageal versus distal esophagus. Portal hypertensive gastropathy in the gastric fundus. Continue PPI avoid NSAIDs, no alcohol. Cleared by GI doctor for discharge to follow up 2 weeks after discharge. Plan to repeat EGD in 6 months per GI. Transfuse as above. DVT Prophylaxis: teds/SCDs to nonoperative leg. Avoid chemical prophylaxis for now with upcoming surgery. Discharge Planning DC today if cleared by nephrology Problem Qualifiers (1) Hip fracture, right: Qualified Code: S72.001A - Hip fracture, right, closed, initial encounter (2) Liver cirrhosis: Qualified Code: K70.30 - Alcoholic cirrhosis of liver without ascites (3) Hypotension: Qualified Code: I95.9 - Hypotension, unspecified hypotension type (4) GI bleed: Caroline Velásquez MD Oct 11, 2016 09:30
[2016-10-11 09:37] LABS: CALCIUM-PROTEIN CORRECTED 8.4 MG/DL (8.5-10.1)
[2016-10-11] MEDS: MULTIVITAMINS/MINERALS THERAPEUTIC TAB PO SCH (09:58)
[2016-10-11] MEDS: FOLIC ACID 1 MG TAB PO SCH (09:59)
[2016-10-11] MEDS: SODIUM CHLORIDE 0.9% FLUSH 5 ML FLUSH IVF SCH (09:59)
[2016-10-11] MEDS: chlordiazePOXIDE 25 MG CAP PO SCH (09:59)
[2016-10-11] MEDS: THIAMINE HCL 100 MG TAB PO SCH (09:59)
[2016-10-11] MEDS: ACETAMINOPHEN/HYDROcodone 325 MG/5 MG TAB PO PRN (10:02)
[2016-10-11 12:00] VITALS: BP 107/69; PULSE 89; RESP 19; TEMP 98.1; O2SAT 97
== END 2016-10-11 13:30 | DRG 481 ==
LOC: NEPA 15:14 → NEDA 21:04 → NEDH 10-05 01:04 → N06B 10-05 16:15
PROVIDERS: ADMIT Hospitalist; ATTEND Hospitalist
PROC: 0QS606Z Reposition Right Upper Femur with Intramedullary Internal Fixation Device, Open Approach (ICD-10-PCS; principal; 2016-10-05 13:22)
PROC: 30233N1 Transfusion of Nonautologous Red Blood Cells into Peripheral Vein, Percutaneous Approach (ICD-10-PCS; 2016-10-07)
PROC: 0DJ08ZZ Inspection of Upper Intestinal Tract, Via Natural or Artificial Opening Endoscopic (ICD-10-PCS; 2016-10-09)
DX: S72.141A Displaced intertrochanteric fracture of right femur, initial encounter for closed fracture (principal); N17.9 Acute kidney failure, unspecified; D68.4 Acquired coagulation factor deficiency; I95.9 Hypotension, unspecified; I85.10 Secondary esophageal varices without bleeding; K76.6 Portal hypertension; E87.1 Hypo-osmolality and hyponatremia; F10.239 Alcohol dependence with withdrawal, unspecified; K92.2 Gastrointestinal hemorrhage, unspecified; K70.30 Alcoholic cirrhosis of liver without ascites; E86.0 Dehydration; J44.9 Chronic obstructive pulmonary disease, unspecified; I10 Essential (primary) hypertension; Z66 Do not resuscitate; K70.40 Alcoholic hepatic failure without coma; B19.20 Unspecified viral hepatitis C without hepatic coma; K31.89 Other diseases of stomach and duodenum; R26.81 Unsteadiness on feet; F17.210 Nicotine dependence, cigarettes, uncomplicated; M19.90 Unspecified osteoarthritis, unspecified site; D50.0 Iron deficiency anemia secondary to blood loss (chronic); Y90.9 Presence of alcohol in blood, level not specified; W01.0XXA Fall on same level from slipping, tripping and stumbling without subsequent striking against object, initial encounter; Y93.01 Activity, walking, marching and hiking; Y92.121 Bathroom in nursing home as the place of occurrence of the external cause
CPT/HCPCS: 36430; 70450; 71010; 73502; 73552; 76000; 76775; 80048; 80053; 81001; 82570; 83735; 83930; 83935; 84100; 84155; 84300; 85007; 85018; 85025; 85027; 85610; 85730; 86038; 86160; 86850; 86900; 86901; 86920; 87205; 93005; 94150; 96374; C1713; C9113; J0690; J1580; J1650; J1885; J2060; J2250; J2270; J2354; J2370; J2405; J3010; J3370; J3411; J7030; J7040; J7050; J7120; P9016